=== PATIENT | male | born 1970 | race Caucasian/White ===

== ENCOUNTER → 2016-10-04 | Outpatient (CLI) | payer BC, OTHER ==
[~2016-10-04] MED LIST: ALLO100T PO; CEFP500T4 PO; COLC0.6T53 PO; HYDR-3720 PO; HYDR1TAB PO; LEVE500T6 PO; LISI-552 PO; NAPR-243 PO; ONDA4TAB8 PO; PRED10TA22 PO; TOPI50TA37 PO; TRM50T PO; VALA10004 PO; ZONI100C3 PO; [UNRECOGNIZED DRUG - OTHER]
--- NOTE | 2016-10-04 12:08 | Diagnostic Imaging Report ---
Right knee. INDICATION: Knee pain. AP and lateral views were obtained. There is no fracture, dislocation, or acute bony abnormality evident. The previous exam of 12/10/2009, did note mild narrowing of the medial compartment of the knee joint. On this exam, there is at least moderate narrowing of the medial compartment of the knee joint. The lateral compartment and the patellofemoral space are fairly well maintained. The soft tissue edema along the anterior aspect of the knee joint seen previously is not as striking on this exam. IMPRESSION: 1. There is no evidence for an acute bony abnormality. 2. 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 3. The knee joint is otherwise fairly well maintained. Dictated by: Dictated on workstation # [id number]
== END ==
LOC: RAD 09:39
PROVIDERS: ATTEND Surgery
DX: Z02.71 Encounter for disability determination (principal)
CPT/HCPCS: 73560

== ENCOUNTER 2016-10-09 09:52 | Emergency (ER) | payer BC ==
[~2016-10-09] VITALS: Ht 182.9 cm; Wt 127.0 kg
[~2016-10-09 09:52] MED LIST changes: -ALLO100T PO; -CEFP500T4 PO; -ONDA4TAB8 PO; -TOPI50TA37 PO; -ZONI100C3 PO
[2016-10-09 10:43] LABS: BASOPHILS # (AUTO) 0.1 10^3/uL (0.0-0.1); BASOPHILS % (AUTO) 1 % (0-10); EOSINOPHILS # (AUTO) 0.1 10^3/uL (0.0-0.3); EOSINOPHILS % (AUTO) 1 % (0-10); LYMPHOCYTES # (AUTO) 1.5 X 10^3 (1.0-4.0); LYMPHOCYTES % (AUTO) 15 % (12-44); MEAN CORPUSCULAR HEMOGLOBIN 29 PG (25-34); MEAN CORPUSCULAR HGB CONC 35 G/DL (32-36); MEAN CORPUSCULAR VOLUME 83 FL (80-99); MEAN PLATELET VOLUME 8.8 FL (7.4-10.4); MONOCYTES # (AUTO) 0.7 X 10^3 (0.0-1.0); MONOCYTES % (AUTO) 7 % (0-12); NEUTROPHILS # (AUTO) 8.1 X 10^3 (1.8-7.8); NEUTROPHILS % (AUTO) 77 % (42-75); PLATELET COUNT 244 10^3/uL (130-400); RED BLOOD COUNT 4.97 10^6/uL (4.35-5.85); RED CELL DISTRIBUTION WIDTH 13.1 % (10.0-14.5); WHITE BLOOD COUNT 10.6 10^3/uL (4.3-11.0)
[2016-10-09 11:02] LABS: ALANINE AMINOTRANSFERASE 42 U/L (0-55); ALBUMIN 4.1 G/DL (3.2-4.5); ANION GAP 9 MMOL/L (5-14); ASPARTATE AMINO TRANSFERASE 29 U/L (5-34); BILIRUBIN,TOTAL 0.5 MG/DL (0.1-1.0); BLOOD UREA NITROGEN 15 MG/DL (7-18); BUN/CREATININE RATIO 17; CALCIUM 8.9 MG/DL (8.5-10.1); CARBON DIOXIDE 21 MMOL/L (21-32); CHLORIDE 106 MMOL/L (98-107); CREATININE SERUM 0.88 MG/DL (0.60-1.30); GFR ESTIMATED > 60; GLUCOSE 109 MG/DL (70-105); POTASSIUM 4.3 MMOL/L (3.6-5.0); SODIUM 136 MMOL/L (135-145); TOTAL PROTEIN 7.1 G/DL (6.4-8.2)
--- NOTE | 2016-10-09 11:21 | ED Neurological Problem ---
General Chief Complaint: Neurological Problems Stated Complaint: SEIZURE Nursing Triage Note: AMB TO ROOM REPORTS THAT HAS HX OF SEIZURE DISORDER. HAD SEIZURE APX 740 . WAS TO SEE NEURO DR ON OCT 06,BUT MISSED APPOINTMENT. LAST SEIZURE WAS IN JUN. REQUESTING PAIN MEDS FOR HEADACHE ON ADMIT. Nursing Sepsis Screen: No Definite Risk Source: patient, police, EMS Exam Limitations: no limitations History of Present Illness Time seen by provider: 11:16 Initial Comments The patient is a 46-year-old white male who presents by ambulance with a chief complaint of seizure. He reports that he had his first seizure in May of this year. His last previous seizure was in June. He was to have seen Dr. Lenin figueroa neurologist in [place] last week but did not have the money for the copayment. His describes that he got up out of the bed to urinate and stumbled his way to the bathroom. He apparently then urinated all over the floor and went back to bed and then had a grand mal seizure including chewing on his tongue and a postictal state. He reports that he has no real memory of these events. He takes Keppra 1000 mg 3 times daily. Timing/Duration: 1-3 hours Severity: moderate Associated Symptoms: confusion fatigue Allergies and Home Medications Allergies Coded Allergies: No Known Drug Allergies (Verified , 06/11/16) Home Medications Colchicine 0.6 Mg Tablet 0.6 MG PO DAILY (Reported) Levetiracetam 500 Mg Tablet #0 1,000 MG PO BID Prescribed by: JOSE SOL on 06/12/16 1454 Lisinopril 20 Mg Tablet 20 MG PO DAILY (Reported) Constitutional: see HPI Eyes: No Symptoms Reported Ears, Nose, Mouth, Throat: no symptoms reported Respiratory: no symptoms reported Cardiovascular: no symptoms reported Gastrointestinal: no symptoms reported Genitourinary: no symptoms reported Musculoskeletal: other Psychiatric/Neurological: Cognitive Dysfunction Headache Tonic Clonic Seizures Weakness Endocrine: No Symptoms Reported (.I and ) Intolerance to Cold Hematologic/Lymphatic: No Symptoms Reported Past Ewqkwcl-Dhfrsy-Gikczo Hx Patient Social History Alcohol Use: Denies Use Recreational Drug Use: Yes Smoking Status: Never a Smoker Recent Foreign Travel: No Contact w/Someone Who Travel: No Recent Infectious Disease Expo: No Recent Hopitalizations: No Physical Abuse Screen: No Sexual Abuse: No Immunizations Up To Date Tetanus Booster (TDap): Unknown Seasonal Allergies Seasonal Allergies: No Surgeries HX Surgeries: Yes (CARDIAC CATH 2007--NORMAL) Surgeries: Cardiac Respiratory Hx Respiratory Disorders: No Cardiovascular Hx Cardiac Disorders: Yes Cardiac Disorders: Hypertension Neurological Hx Neurological Disorders: Yes Neurological Disorders: Seizure Disorder Reproductive System Hx Reproductive Disorders: No Genitourinary Hx Genitourinary Disorders: No Gastrointestinal Hx Gastrointestinal Disorders: No Musculoskeletal Hx Musculoskeletal Disorders: Yes Musculoskeletal Disorders: Arthritis, Gout Endocrine Hx Endocrine Disorders: Yes (PT REPORTS POSSIBLE NEW ONSET OF DM (UNSURE)) Endocrine Disorders: Diabetes, Non-Insulin dep HEENT HX ENT Disorders: No Cancer Hx Cancer: No Psychosocial Hx Psychiatric Problems: No Integumentary HX Skin/Integumentary Disorder: No Blood Transfusions Hx Blood Disorders: No Family Medical History Family Medial History: Congenital disease SON Seizure disorder G8 BROTHER G8 SISTER SON Physical Exam Vital Signs Vital Sign - Last 12Hours 10/09/16 09:55 Temp 99.0 Pulse 79 Resp 18 B/P 148/91 Pulse Ox 95 Capillary Refill : Less Than 3 Seconds General Appearance: WD/WN other (a bit vague as a historian) HEENT: normal ENT inspection Neck: full range of motion Respiratory: chest non-tender lungs clear normal breath sounds no respiratory distress no accessory muscle use respiratory distress Cardiovascular: normal peripheral pulses regular rate, rhythm no edema no gallop no JVD no murmur Gastrointestinal: normal bowel sounds non tender soft no organomegaly no pulsatile mass Back: normal inspection no CVA tenderness no vertebral tenderness CVA tenderness (R) CVA tenderness (L) Extremities: normal range of motion non-tender normal inspection no pedal edema no calf tenderness normal capillary refill pelvis stable Neurologic/Psychiatric: dog raiser II-XII nml as tested no motor/sensory deficits alert normal mood/affect oriented x 3 abnormal cerebellar tests Crainal Nerves: normal hearing normal speech PERRL abnormal eye position Skin: normal color warm/dry Lymphatic: no adenopathy Progress/Results/Core Measures Results/Orders Lab Results Laboratory Tests Test 10/09/16 10:30 Range/Units Alanine Aminotransferase (ALT/SGPT) 42 0-55 U/L Albumin 4.1 3.2-4.5 G/DL Alkaline Phosphatase 74 40-136 U/L Anion Gap 9 5-14 MMOL/L Aspartate Amino Transf (AST/SGOT) 29 5-34 U/L BUN/Creatinine Ratio 17 Basophils # (Auto) 0.1 0.0-0.1 10^3/uL Basophils (%) (Auto) 1 0-10 % Blood Urea Nitrogen 15 7-18 MG/DL Calcium Level 8.9 8.5-10.1 MG/DL Carbon Dioxide Level 21 21-32 MMOL/L Chloride Level 106 98-107 MMOL/L Creatinine 0.88 0.60-1.30 MG/DL Eosinophils # (Auto) 0.1 0.0-0.3 10^3/uL Eosinophils (%) (Auto) 1 0-10 % Estimat Glomerular Filtration Rate > 60 Glucose Level 109 H 70-105 MG/DL Hematocrit 41 40-54 % Hemoglobin 14.3 13.3-17.7 G/DL Lymphocytes # (Auto) 1.5 1.0-4.0 X 10^3 Lymphocytes (%) (Auto) 15 12-44 % Mean Corpuscular Hemoglobin 29 25-34 PG Mean Corpuscular Hemoglobin Concent 35 32-36 G/DL Mean Corpuscular Volume 83 80-99 FL Mean Platelet Volume 8.8 7.4-10.4 FL Monocytes # (Auto) 0.7 0.0-1.0 X 10^3 Monocytes (%) (Auto) 7 0-12 % Neutrophils # (Auto) 8.1 H 1.8-7.8 X 10^3 Neutrophils (%) (Auto) 77 H 42-75 % Platelet Count 244 130-400 10^3/uL Potassium Level 4.3 3.6-5.0 MMOL/L Red Blood Count 4.97 4.35-5.85 10^6/uL Red Cell Distribution Width 13.1 10.0-14.5 % Sodium Level 136 135-145 MMOL/L Total Bilirubin 0.5 0.1-1.0 MG/DL Total Protein 7.1 6.4-8.2 G/DL White Blood Count 10.6 4.3-11.0 10^3/uL My Orders Orders-KINGSLEY PEREIRA MD Levetiracetam Level (Keppra) (10/09/16 10:24) Cbc With Automated Diff (10/09/16 10:25) Comprehensive Metabolic Panel (10/09/16 10:25) Vital Signs/I&O Vital Sign - Last 12Hours 10/09/16 09:55 Temp 99.0 Pulse 79 Resp 18 B/P 148/91 Pulse Ox 95 Blood Pressure Mean: 110 Departure Communication Progress Notes Discussion included possibility of further workup. By history these are suggestive of complex partial seizures. He is again informed that long requires that he not drive until he has not had a seizure for 6 months Impression Impression: Primary Impression: tonic-clonic seizure Disposition: HOME, SELF-CARE Condition: Stable/Unchanged Departure-Patient Inst. Decision time for Depature: 11:25 Referrals: RICARDO MELO DO (PCP) Primary Care Physician ZULAY BARROW (Family) Primary Care Physician Patient Instructions: Epilepsy in Adults Add. Discharge Instructions: All discharge instructions reviewed with patient and/or family. Voiced understanding. Take medications as's prescribed A seizure med blood test has been sent off and should be available early to mid next week. You can get this report from [facility]. Consider arranging a consultation in the [facility] seizure clinic. As discussed you're not allowed to drive by law until you have gone 6 months without a seizure KINGSLEY PEREIRA MD Oct 09, 2016 11:21
[2016-10-09 11:30] VITALS: BP 147/83
== END 2016-10-09 11:35 | disposition home or self-care (01) ==
LOC: EDUNIT# 09:52 → ER 09:53
DX: G40.909 Epilepsy, unspecified, not intractable, without status epilepticus (principal); I10 Essential (primary) hypertension; E11.9 Type 2 diabetes mellitus without complications; Z79.899 Other long term (current) drug therapy
CPT/HCPCS: 36415; 80053; 80177; 85025; 99283

== ENCOUNTER 2016-12-12 02:01 | Emergency (ER) | payer BC ==
[~2016-12-12] VITALS: Ht 182.9 cm; Wt 131.5 kg
[2016-12-12] MEDS ORDERED: TOPI50TA37 PO (02:06)
[2016-12-12] MEDS ORDERED: ZONI100C3 PO (02:06)
[2016-12-12] MEDS ORDERED: ALLO100T PO (02:06)
[2016-12-12] MEDS ORDERED: NS IV 1000 ML 1,000 ML IV ONE (02:24)
[2016-12-12 02:29] LABS: BASOPHILS % (AUTO) 0 % (0-10); EOSINOPHILS # (AUTO) 0.2 10^3/uL (0.0-0.3); EOSINOPHILS % (AUTO) 2 % (0-10); LYMPHOCYTES # (AUTO) 2.3 X 10^3 (1.0-4.0); LYMPHOCYTES % (AUTO) 24 % (12-44); MEAN CORPUSCULAR HEMOGLOBIN 28 PG (25-34); MEAN CORPUSCULAR HGB CONC 35 G/DL (32-36); MEAN CORPUSCULAR VOLUME 81 FL (80-99); MEAN PLATELET VOLUME 8.7 FL (7.4-10.4); MONOCYTES # (AUTO) 0.7 X 10^3 (0.0-1.0); MONOCYTES % (AUTO) 7 % (0-12); NEUTROPHILS # (AUTO) 6.5 X 10^3 (1.8-7.8); NEUTROPHILS % (AUTO) 67 % (42-75); PLATELET COUNT 271 10^3/uL (130-400); RED CELL DISTRIBUTION WIDTH 13.8 % (10.0-14.5); WHITE BLOOD COUNT 9.8 10^3/uL (4.3-11.0)
[2016-12-12 02:46] LABS: ALANINE AMINOTRANSFERASE 40 U/L (0-55); ALBUMIN 4.3 G/DL (3.2-4.5); ANION GAP 12 MMOL/L (5-14); ASPARTATE AMINO TRANSFERASE 29 U/L (5-34); BILIRUBIN,TOTAL 0.5 MG/DL (0.1-1.0); BLOOD UREA NITROGEN 19 MG/DL (7-18); BUN/CREATININE RATIO 14; CALCIUM 9.2 MG/DL (8.5-10.1); CARBON DIOXIDE 22 MMOL/L (21-32); CHLORIDE 103 MMOL/L (98-107); CREATININE SERUM 1.36 MG/DL (0.60-1.30); GFR ESTIMATED 57; GLUCOSE 147 MG/DL (70-105); MAGNESIUM 2.5 MG/DL (1.8-2.4); POTASSIUM 3.7 MMOL/L (3.6-5.0); SODIUM 137 MMOL/L (135-145); TOTAL PROTEIN 7.8 G/DL (6.4-8.2)
[2016-12-12 02:47] LABS: ALCOHOL < 10 MG/DL (<10)
[2016-12-12 03:36] LABS: BILIRUBIN,URINE NEGATIVE (NEGATIVE); KETONES,URINE NEGATIVE (NEGATIVE); LEUKOCYTE ESTERASE ,URINE NEGATIVE (NEGATIVE); NITRITE,URINE NEGATIVE (NEGATIVE); PH,URINE 5 (5-9); PROTEIN,URINE 1+ (NEGATIVE); UROBILINOGEN,URINE 1 MG/DL (NORMAL)
[2016-12-12 03:43] LABS: SQUAMOUS EPITHELIAL CELL,UR 0-2 /HPF
[2016-12-12 03:44] LABS: HYALINE CASTS, URINE RARE /LPF
--- NOTE | 2016-12-12 04:21 | ED Neurological Problem ---
General Chief Complaint: Neurological Problems Stated Complaint: SEIZURE Nursing Triage Note: SEIZURE. Nursing Sepsis Screen: No Definite Risk Source: patient Exam Limitations: no limitations History of Present Illness Time seen by provider: 02:11 Initial Comments This 46-year-old man presents to the emergency room via EMS after falling out of bed during a seizure. He broke his glasses but denies any head or neck injury. His neck is nontender. He has abrasions to the right knee and elbow but no significant pain. He reports having 7 seizures since May. He is a patient of Dr. Phelps and Mariluz Salazar. He denies any alcohol consumption. However, he does admit to marijuana use within the past few days. Patient has some chronic knee pain related to gout but no acute injuries he wishes to have evaluated. Allergies and Home Medications Allergies Coded Allergies: No Known Drug Allergies (Verified , 06/11/16) Home Medications Allopurinol 100 Mg Tablet, 100 MG PO DAILY, (Reported) Levetiracetam 500 Mg Tablet, 1,000 MG PO BID, #0 Prescribed by: JOSE SOL on 06/12/16 1454 Lisinopril 20 Mg Tablet, 20 MG PO DAILY, (Reported) Topiramate 50 Mg Tablet, 50 MG PO BID, (Reported) Zonisamide 100 Mg Capsule, 400 MG PO HS, (Reported) Constitutional: no symptoms reported Eyes: No Symptoms Reported Ears, Nose, Mouth, Throat: mouth pain (Tongue contusion from biting during seizure) Respiratory: no symptoms reported Cardiovascular: no symptoms reported Gastrointestinal: no symptoms reported Genitourinary: no symptoms reported Musculoskeletal: see HPI Skin: see HPI Psychiatric/Neurological: See HPI Endocrine: No Symptoms Reported Past Qhndqlu-Zfclzm-Fwtrjd Hx Patient Social History Alcohol Use: Denies Use Recreational Drug Use: Yes Drug of Choice: CANNIBUS Smoking Status: Current Someday Smoker Type Used: Cigarettes 2nd Hand Smoke Exposure: Yes Recent Foreign Travel: No Contact w/Someone Who Travel: No Recent Infectious Disease Expo: No Recent Hopitalizations: No Immunizations Up To Date Tetanus Booster (TDap): Unknown Seasonal Allergies Seasonal Allergies: No Surgeries HX Surgeries: Yes (CARDIAC CATH 2007--NORMAL, L KNEE) Surgeries: Cardiac, Orthopedic Respiratory Hx Respiratory Disorders: No Cardiovascular Hx Cardiac Disorders: Yes Cardiac Disorders: Hypertension Neurological Hx Neurological Disorders: Yes Neurological Disorders: Headaches /Migraines, Seizure Disorder Reproductive System Hx Reproductive Disorders: No Genitourinary Hx Genitourinary Disorders: No Gastrointestinal Hx Gastrointestinal Disorders: No Musculoskeletal Hx Musculoskeletal Disorders: Yes (Chronic knee pain) Musculoskeletal Disorders: Arthritis, Gout Endocrine Hx Endocrine Disorders: Yes (PT REPORTS POSSIBLE NEW ONSET OF DM (UNSURE)) Endocrine Disorders: Diabetes, Non-Insulin dep HEENT HX ENT Disorders: No Cancer Hx Cancer: No Psychosocial Hx Psychiatric Problems: No Integumentary HX Skin/Integumentary Disorder: No Blood Transfusions Hx Blood Disorders: No Family Medical History Family Medial History: Congenital disease SON Seizure disorder G8 BROTHER G8 SISTER SON Physical Exam Vital Signs Capillary Refill : Less Than 3 Seconds General Appearance: WD/WN, no apparent distress HEENT: PERRL/EOMI, normal ENT inspection, pharynx normal, other (Tongue contusion) Neck: non-tender, supple, normal inspection Respiratory: lungs clear, normal breath sounds, no respiratory distress, no accessory muscle use Cardiovascular: regular rate, rhythm, no edema, no murmur Gastrointestinal: normal bowel sounds, non tender, soft Extremities: other (Abrasions on right upper and lower extremity. Chronic right knee tenderness reported as unchanged) Neurologic/Psychiatric: contract paralegal II-XII nml as tested, no motor/sensory deficits, alert, normal mood/affect, oriented x 3 Crainal Nerves: normal hearing, normal speech, PERRL Motor/Sensory: no motor deficit, no sensory deficit Skin: normal color, warm/dry Progress/Results/Core Measures Results/Orders Lab Results Laboratory Tests Test 12/12/16 02:15 12/12/16 03:29 Range/Units White Blood Count 9.8 4.3-11.0 10^3/uL Red Blood Count 5.10 4.35-5.85 10^6/uL Hemoglobin 14.5 13.3-17.7 G/DL Hematocrit 41 40-54 % Mean Corpuscular Volume 81 80-99 FL Mean Corpuscular Hemoglobin 28 25-34 PG Mean Corpuscular Hemoglobin Concent 35 32-36 G/DL Red Cell Distribution Width 13.8 10.0-14.5 % Platelet Count 271 130-400 10^3/uL Mean Platelet Volume 8.7 7.4-10.4 FL Neutrophils (%) (Auto) 67 42-75 % Lymphocytes (%) (Auto) 24 12-44 % Monocytes (%) (Auto) 7 0-12 % Eosinophils (%) (Auto) 2 0-10 % Basophils (%) (Auto) 0 0-10 % Neutrophils # (Auto) 6.5 1.8-7.8 X 10^3 Lymphocytes # (Auto) 2.3 1.0-4.0 X 10^3 Monocytes # (Auto) 0.7 0.0-1.0 X 10^3 Eosinophils # (Auto) 0.2 0.0-0.3 10^3/uL Basophils # (Auto) 0.0 0.0-0.1 10^3/uL Sodium Level 137 135-145 MMOL/L Potassium Level 3.7 3.6-5.0 MMOL/L Chloride Level 103 98-107 MMOL/L Carbon Dioxide Level 22 21-32 MMOL/L Anion Gap 12 5-14 MMOL/L Blood Urea Nitrogen 19 H 7-18 MG/DL Creatinine 1.36 H 0.60-1.30 MG/DL Estimat Glomerular Filtration Rate 57 BUN/Creatinine Ratio 14 Glucose Level 147 H 70-105 MG/DL Calcium Level 9.2 8.5-10.1 MG/DL Magnesium Level 2.5 H 1.8-2.4 MG/DL Total Bilirubin 0.5 0.1-1.0 MG/DL Aspartate Amino Transf (AST/SGOT) 29 5-34 U/L Alanine Aminotransferase (ALT/SGPT) 40 0-55 U/L Alkaline Phosphatase 80 40-136 U/L Total Protein 7.8 6.4-8.2 G/DL Albumin 4.3 3.2-4.5 G/DL Serum Alcohol < 10 <10 MG/DL Urine Color YELLOW Urine Clarity CLEAR Urine pH 5 5-9 Urine Specific Sachse 1.025 H 1.016-1.022 Urine Protein 1+ H NEGATIVE Urine Glucose (UA) NEGATIVE NEGATIVE Urine Ketones NEGATIVE NEGATIVE Urine Nitrite NEGATIVE NEGATIVE Urine Bilirubin NEGATIVE NEGATIVE Urine Urobilinogen 1 NORMAL MG/DL Urine Leukocyte Esterase NEGATIVE NEGATIVE Urine RBC (Auto) NEGATIVE NEGATIVE Urine RBC NONE /HPF Urine WBC NONE /HPF Urine Squamous Epithelial Cells 0-2 /HPF Urine Crystals NONE /LPF Urine Bacteria TRACE /HPF Urine Casts PRESENT /LPF Urine Hyaline Casts RARE /LPF Urine Mucus NEGATIVE /LPF Urine Other FEW SPERM H /HPF Urine Culture Indicated NO Urine Opiates Screen NEGATIVE NEGATIVE Urine Oxycodone Screen NEGATIVE NEGATIVE Urine Methadone Screen NEGATIVE NEGATIVE Urine Propoxyphene Screen NEGATIVE NEGATIVE Urine Barbiturates Screen NEGATIVE NEGATIVE Ur Tricyclic Antidepressants Screen NEGATIVE NEGATIVE Urine Phencyclidine Screen NEGATIVE NEGATIVE Urine Amphetamines Screen NEGATIVE NEGATIVE Urine Methamphetamines Screen NEGATIVE NEGATIVE Urine Benzodiazepines Screen NEGATIVE NEGATIVE Urine Cocaine Screen NEGATIVE NEGATIVE Urine Cannabinoids Screen POSITIVE H NEGATIVE My Orders Orders - DARION TAYLOR MD Alcohol (12/12/16 02:24) Cbc With Automated Diff (12/12/16 02:24) Comprehensive Metabolic Panel (12/12/16 02:24) Drug Screen Stat (Urine) (12/12/16 02:24) Magnesium (12/12/16 02:24) Ua Culture If Indicated (12/12/16 02:24) Saline Lock/Iv-Start (12/12/16 02:24) Ns Iv 1000 Ml (Sodium Chloride 0.9%) (12/12/16 02:24) Medications Given in ED Vital Signs/I&O Blood Pressure Mean: 105 Progress Note : Progress Note Patient was given a liter of IV fluids and advised to discontinue marijuana use. He was instructed to follow-up with Dr. Phelps. Departure Impression Impression: Primary Impression: Seizure Additional Impression: Elbow abrasion Qualified Codes: S50.312A - Abrasion of left elbow, initial encounter Disposition: 01 HOME, SELF-CARE Condition: Improved Departure-Patient Inst. Decision time for Depature: 04:15 Referrals: RICARDO MELO DO (PCP/Family) Primary Care Physician Patient Instructions: Seizures, Adult (DC) Add. Discharge Instructions: Follow-up with Dr. Phelps this week. Please continue your antiseizure medications. Avoid use of psychoactive substances such as marijuana as they may potentiate seizures. All discharge instructions reviewed with patient and/or family. Voiced understanding. DARION TAYLOR MD Dec 12, 2016 04:21
[2016-12-12 04:36] VITALS: BP 93/50
--- OUTSIDE RECORDS SUMMARY | 2017-01-04 11:38 | XMS REPORT ---
Author Author DYAN MENON [facility] e[employer] Address Unknown Phone Unavailable Care Team Providers Care Manager Developmental Name Role Phone DYAN MENON Unavailable Allergies, Adverse Reactions, Alerts Substance Reaction Event Type N.K.D.A. 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 Active Problem Other and unspecified bipolar disorders 296.89 Active Problem Nausea with vomiting 787.01 Active Problem Unspecified episodic mood disorder 296.90 Active Problem Diarrhea 787.91 Active Problem Fever, unspecified 780.60 Active Problem Torticollis, unspecified 723.5 Active Problem Essential hypertension, malignant 401.0 Active Problem Cough 786.2 Active Problem Cellulitis and abscess of unspecified site 682.9 Active Problem Sebaceous cyst 706.2 Active Problem Unspecified infective otitis externa 380.10 Active Problem Unspecified site of ankle sprain and strain 845.00 Active Problem Carpal tunnel syndrome 354.0 Active Problem Pain in joint, ankle and foot 719.47 Active Medications Medication Code System Code Instructions Start Date End Date Status Dosage Valtrex [facility] [address]-01 1 GM Orally 3 times a day Aug 13, 2015 1 tablet Lisinopril [facility] [address]-13 10 MG Orally Once a day January 20, 2015 1 tablet Procedures Procedure Coding System Code Date Office Visit, Est Pt., Level 3 CPT-4 68799 Sep 01, 2015 Vital Signs Date/Time: Sep 01, 2015 Temperature 97.9 F Weight 285.0 lbs Height 72 in BMI 38.65 Index Blood Pressure Diastolic 88 mmHg Blood Pressure Systolic 132 mmHg Cardiac Monitoring Heart Rate 78 bpm Results No Known Results Summary Purpose eClinicalWorks Submission
--- OUTSIDE RECORDS SUMMARY | 2017-01-04 11:38 | XMS REPORT | Continuity of Care Document ---
Author Author [facility] Address Unknown Phone Unavailable Allergies Active Description Code Type Severity Reaction Onset Reported/Identified Relationship to Patient Clinical Status Yes No Known Drug Allergies [id number] Drug Allergy Unknown N/ A 06/11/2016 Medications Problems Date Dx Coded Attending Type Code Diagnosis Diagnosed By 06/05/2008 RICARDO MELO DO K 845.00 Sprain/strain Ankle 06/05/2008 845.00 Sprain/strain Ankle 06/05/2008 845.00 Sprain/strain Ankle 06/05/2008 VASU PHD, JEAN A 845.00 Sprain/strain Ankle 06/05/2008 RICARDO MELO DO K 845.00 Sprain/strain Ankle 06/05/2008 VASU PHD, JEAN A 845.00 Sprain/strain Ankle 06/05/2008 VASU PHD, JEAN A 845.00 Sprain/strain Ankle 06/05/2008 TAWNY BRAUN, ANNA Lombardo 845.00 Sprain/strain Ankle 06/05/2008 VASU PHD, JEAN A 845.00 Sprain/strain Ankle 06/05/2008 VASU PHD, JEAN A 845.00 Sprain/strain Ankle 06/05/2008 VASU PHD, JEAN A 845.00 Sprain/strain Ankle 06/05/2008 VASU PHD, JEAN A 845.00 Sprain/strain Ankle 06/05/2008 VASU PHD, JEAN A 845.00 Sprain/strain Ankle 06/05/2008 SKIP MCKNIGHT APRN A 845.00 Sprain/strain Ankle 06/05/2008 RICARDO MELO DO K 845.00 Sprain/strain Ankle 06/05/2008 RICARDO MELO DO K 845.00 Sprain/strain Ankle 06/05/2008 VASU PHD, JEAN A 845.00 Sprain/strain Ankle 06/05/2008 TAWNY BRAUN, ANNA Lombardo 845.00 Sprain/strain Ankle 06/05/2008 ANDREI EVANS MD 845.00 Sprain/strain Ankle 06/05/2008 MELO DORICARDO K 845.00 Sprain/strain Ankle 06/05/2008 JUAN ALCANTARA APRN 845.00 Sprain/strain Ankle 08/10/2011 MELO DO, RICARDO K 274.9 GOUT 08/10/2011 MELO DO, RICARDO K 401.1 ESSENTIAL HYPERTENSION BENIGN 08/10/2011 274.9 GOUT 08/10/2011 401.1 ESSENTIAL HYPERTENSION BENIGN 08/10/2011 274.9 GOUT 08/10/2011 401.1 ESSENTIAL HYPERTENSION BENIGN 08/10/2011 JEAN LEONE PHD A 274.9 GOUT 08/10/2011 JEAN LEONE PHD A 401.1 ESSENTIAL HYPERTENSION BENIGN 08/10/2011 MELO DO, RICARDO K 274.9 GOUT 08/10/2011 MELO DO RICARDO K 401.1 ESSENTIAL HYPERTENSION BENIGN 08/10/2011 JEAN LEONE PHD A 274.9 GOUT 08/10/2011 JEAN LEONE PHD A 401.1 ESSENTIAL HYPERTENSION BENIGN 08/10/2011 VASU KUMAR, JEAN A 274.9 GOUT 08/10/2011 JEAN LEONE PHD A 401.1 ESSENTIAL HYPERTENSION BENIGN 08/10/2011 ANNA HECTOR MD N 274.9 GOUT 08/10/2011 ANNA HECTOR MD 401.1 ESSENTIAL HYPERTENSION BENIGN 08/10/2011 VASU KUMAR, JEAN A 274.9 GOUT 08/10/2011 JEAN LEONE PHD A 401.1 ESSENTIAL HYPERTENSION BENIGN 08/10/2011 VASU KUMAR JEAN A 274.9 GOUT 08/10/2011 VASU KUMAR JEAN A 401.1 ESSENTIAL HYPERTENSION BENIGN 08/10/2011 VASU KUMAR, JEAN A 274.9 GOUT 08/10/2011 VASU KUMAR JEAN A 401.1 ESSENTIAL HYPERTENSION BENIGN 08/10/2011 VASU KUMAR JEAN A 274.9 GOUT 08/10/2011 VASU KUMAR JEAN A 401.1 ESSENTIAL HYPERTENSION BENIGN 08/10/2011 VASU KUMAR JEAN A 274.9 GOUT 08/10/2011 VASU KUMAR JEAN A 401.1 ESSENTIAL HYPERTENSION BENIGN 08/10/2011 ROXANNA TESFAYE, SKIP A 274.9 GOUT 08/10/2011 RAJOTTE SELF PAY COLLECTOR, SKIP A 401.1 ESSENTIAL HYPERTENSION BENIGN 08/10/2011 MELO DO, RICARDO K 274.9 GOUT 08/10/2011 MELO DO, RICARDO K 401.1 ESSENTIAL HYPERTENSION BENIGN 08/10/2011 MELO DO, RICARDO K 274.9 GOUT 08/10/2011 MELO DO, RICARDO K 401.1 ESSENTIAL HYPERTENSION BENIGN 08/10/2011 VASU KUMAR, JEAN A 274.9 GOUT 08/10/2011 VASU KUMAR, JEAN Caballero 401.1 ESSENTIAL HYPERTENSION BENIGN 08/10/2011 TAWNY BRAUN, ANNA Lombardo 274.9 GOUT 08/10/2011 TAWNY BRAUN, ANNA Lombardo 401.1 ESSENTIAL HYPERTENSION BENIGN 08/10/2011 ANDREI EVANS MD 274.9 GOUT 08/10/2011 ANDREI EVANS MD 401.1 ESSENTIAL HYPERTENSION BENIGN 08/10/2011 MELO DO, RICARDO K 274.9 GOUT 08/10/2011 MELO DO, RICARDO K 401.1 ESSENTIAL HYPERTENSION BENIGN 08/10/2011 JUAN ALCANTARA APRN T 274.9 GOUT 08/10/2011 JUAN ALCANTARA APRN 401.1 ESSENTIAL HYPERTENSION BENIGN 08/18/2011 MELO DO, RICARDO K 296.80 BIPOLAR DISORDER NOS 08/18/2011 296.80 BIPOLAR DISORDER NOS 08/18/2011 296.80 BIPOLAR DISORDER NOS 08/18/2011 JEAN LEONE PHD 296.80 BIPOLAR DISORDER NOS 08/18/2011 MELO DO, RICARDO K 296.80 BIPOLAR DISORDER NOS 08/18/2011 JEAN LEONE PHD A 296.80 BIPOLAR DISORDER NOS 08/18/2011 JEAN LEONE PHD A 296.80 BIPOLAR DISORDER NOS 08/18/2011 ANNA HECTOR MD 296.80 BIPOLAR DISORDER NOS 08/18/2011 JEAN LEONE PHD 296.80 BIPOLAR DISORDER NOS 08/18/2011 JEAN LEONE PHD 296.80 BIPOLAR DISORDER NOS 08/18/2011 JEAN LEONE PHD 296.80 BIPOLAR DISORDER NOS 08/18/2011 JEAN LEONE PHD A 296.80 BIPOLAR DISORDER NOS 08/18/2011 JEAN LEONE PHD 296.80 BIPOLAR DISORDER NOS 08/18/2011 SKIP MCKNIGHT APRN A 296.80 BIPOLAR DISORDER NOS 08/18/2011 MELO DO, RICARDO K 296.80 BIPOLAR DISORDER NOS 08/18/2011 MELO DO, RICARDO K 296.80 BIPOLAR DISORDER NOS 08/18/2011 VASU KUMAR, JEAN A 296.80 BIPOLAR DISORDER NOS 08/18/2011 TAWNY BRAUN, ANNA Lombardo 296.80 BIPOLAR DISORDER NOS 08/18/2011 ANDREI EVANS MD 296.80 BIPOLAR DISORDER NOS 08/18/2011 MELO DO, RICARDO K 296.80 BIPOLAR DISORDER NOS 08/18/2011 JUAN ALCANTARA APRN 296.80 BIPOLAR DISORDER NOS 09/17/2011 MELO DO, RICARDO K 296.89 MO BIPOLAR II 09/17/2011 296.89 MO BIPOLAR II 09/17/2011 296.89 MO BIPOLAR II 09/17/2011 VASU KUMAR, JEAN A 296.89 MO BIPOLAR II 09/17/2011 KAMERON DOJUANA K 296.89 MO BIPOLAR II 09/17/2011 VASU KUMAR, JEAN A 296.89 MO BIPOLAR II 09/17/2011 VASU KUMAR, JEAN A 296.89 MO BIPOLAR II 09/17/2011 ANNA HECTOR MD 296.89 MO BIPOLAR II 09/17/2011 VASU PHD, JEAN A 296.89 MO BIPOLAR II 09/17/2011 VASU PHD, JEAN A 296.89 MO BIPOLAR II 09/17/2011 VASU KUMAR, JEAN A 296.89 MO BIPOLAR II 09/17/2011 VASU KUMAR, JEAN A 296.89 MO BIPOLAR II 09/17/2011 VASU KUMAR, JEAN A 296.89 MO BIPOLAR II 09/17/2011 SKIP MCKNIGHT APRN A 296.89 MO BIPOLAR II 09/17/2011 MELO DO, RICARDO K 296.89 MO BIPOLAR II 09/17/2011 MELO DO RICARDO K 296.89 MO BIPOLAR II 09/17/2011 VASU KUMAR, JEAN A 296.89 MO BIPOLAR II 09/17/2011 ANNA HECTOR MD 296.89 MO BIPOLAR II 09/17/2011 ANDREI EVANS MD 296.89 MO BIPOLAR II 09/17/2011 MELO DO RICARDO K 296.89 MO BIPOLAR II 09/17/2011 JUAN ALCANTARA APRN 296.89 MO BIPOLAR II 01/24/2012 RICARDO MELO DO K 682.9 CELLULITIS AND ABSCESS OF UNSPECIFIED SITES 01/24/2012 RICARDO MELO DO K 706.2 SEBACEOUS CYST 01/24/2012 682.9 CELLULITIS AND ABSCESS OF UNSPECIFIED SITES 01/24/2012 706.2 SEBACEOUS CYST 01/24/2012 682.9 CELLULITIS AND ABSCESS OF UNSPECIFIED SITES 01/24/2012 706.2 SEBACEOUS CYST 01/24/2012 VASU KUMAR, JEAN A 682.9 CELLULITIS AND ABSCESS OF UNSPECIFIED SITES 01/24/2012 VASU KUMAR, JEAN A 706.2 SEBACEOUS CYST 01/24/2012 RICARDO MELO DO 682.9 CELLULITIS AND ABSCESS OF UNSPECIFIED SITES 01/24/2012 RICARDO MELO DO 706.2 SEBACEOUS CYST 01/24/2012 JEAN LEONE PHD A 682.9 CELLULITIS AND ABSCESS OF UNSPECIFIED SITES 01/24/2012 JEAN LEONE PHD A 706.2 SEBACEOUS CYST 01/24/2012 VASU PHD, JEAN A 682.9 CELLULITIS AND ABSCESS OF UNSPECIFIED SITES 01/24/2012 JEAN LEONE PHD A 706.2 SEBACEOUS CYST 01/24/2012 ANNA HECTOR MD 682.9 CELLULITIS AND ABSCESS OF UNSPECIFIED SITES 01/24/2012 ANNA HECTOR MD 706.2 SEBACEOUS CYST 01/24/2012 JEAN LEONE PHD A 682.9 CELLULITIS AND ABSCESS OF UNSPECIFIED SITES 01/24/2012 JEAN LEONE PHD A 706.2 SEBACEOUS CYST 01/24/2012 VASU KUMAR, JEAN A 682.9 CELLULITIS AND ABSCESS OF UNSPECIFIED SITES 01/24/2012 JEAN LEONE PHD A 706.2 SEBACEOUS CYST 01/24/2012 JEAN LEONE PHD A 682.9 CELLULITIS AND ABSCESS OF UNSPECIFIED SITES 01/24/2012 JEAN LEONE PHD A 706.2 SEBACEOUS CYST 01/24/2012 JEAN LEONE PHD A 682.9 CELLULITIS AND ABSCESS OF UNSPECIFIED SITES 01/24/2012 VASU KUMAR, JEAN A 706.2 SEBACEOUS CYST 01/24/2012 VASU KUMAR, JEAN A 682.9 CELLULITIS AND ABSCESS OF UNSPECIFIED SITES 01/24/2012 VASU KUMAR, JEAN A 706.2 SEBACEOUS CYST 01/24/2012 SKIP MCKNIGHT APRN A 682.9 CELLULITIS AND ABSCESS OF UNSPECIFIED SITES 01/24/2012 SKIP MCKNIGHT APRN A 706.2 SEBACEOUS CYST 01/24/2012 MELO DO RICARDO K 682.9 CELLULITIS AND ABSCESS OF UNSPECIFIED SITES 01/24/2012 MELO DO RICARDO K 706.2 SEBACEOUS CYST 01/24/2012 MELO DO RICARDO K 682.9 CELLULITIS AND ABSCESS OF UNSPECIFIED SITES 01/24/2012 MELO DO RICARDO K 706.2 SEBACEOUS CYST 01/24/2012 VASU KUMAR, JEAN A 682.9 CELLULITIS AND ABSCESS OF UNSPECIFIED SITES 01/24/2012 VASU KUMAR, JEAN A 706.2 SEBACEOUS CYST 01/24/2012 ANNA HECTOR MD 682.9 CELLULITIS AND ABSCESS OF UNSPECIFIED SITES 01/24/2012 ANNA HECTOR MD 706.2 SEBACEOUS CYST 01/24/2012 ANDREI EVANS MD 682.9 CELLULITIS AND ABSCESS OF UNSPECIFIED SITES 01/24/2012 ANDREI EVANS MD 706.2 SEBACEOUS CYST 01/24/2012 JUAN MELO DOA K 682.9 CELLULITIS AND ABSCESS OF UNSPECIFIED SITES 01/24/2012 JUAN MELO DOA K 706.2 SEBACEOUS CYST 01/24/2012 JUAN ALCANTARA APRN 682.9 CELLULITIS AND ABSCESS OF UNSPECIFIED SITES 01/24/2012 JUAN ALCANTARA APRN 706.2 SEBACEOUS CYST 07/18/2012 RICARDO MELO DO 008.8 GASTROENTERITIS, VIRAL 07/18/2012 JUAN MELO DOA K 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 07/18/2012 JUAN MELO DOA K 784.91 POSTNASAL DRIP 07/18/2012 JUAN MELO DOA K 787.01 NAUSEA WITH VOMITING 07/18/2012 008.8 GASTROENTERITIS, VIRAL 07/18/2012 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 07/18/2012 784.91 POSTNASAL DRIP 07/18/2012 787.01 NAUSEA WITH VOMITING 07/18/2012 008.8 GASTROENTERITIS, VIRAL 07/18/2012 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 07/18/2012 784.91 POSTNASAL DRIP 07/18/2012 787.01 NAUSEA WITH VOMITING 07/18/2012 JEAN LEONE PHD 008.8 GASTROENTERITIS, VIRAL 07/18/2012 JEAN LEONE PHD 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 07/18/2012 VASU KUMAR, JEAN Caballero 784.91 POSTNASAL DRIP 07/18/2012 JEAN LEONE PHD 787.01 NAUSEA WITH VOMITING 07/18/2012 MELO DO RICARDO K 008.8 GASTROENTERITIS, VIRAL 07/18/2012 MELO DO RICARDO K 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 07/18/2012 MELO DO RICARDO K 784.91 POSTNASAL DRIP 07/18/2012 MELO DO RICARDO K 787.01 NAUSEA WITH VOMITING 07/18/2012 JEAN LEONE PHD 008.8 GASTROENTERITIS, VIRAL 07/18/2012 VASU KUMAR, JEAN Caballero 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 07/18/2012 JEAN LEONE PHD A 784.91 POSTNASAL DRIP 07/18/2012 JEAN LEONE PHD A 787.01 NAUSEA WITH VOMITING 07/18/2012 JEAN LEONE PHD 008.8 GASTROENTERITIS, VIRAL 07/18/2012 JEAN LEONE PHD 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 07/18/2012 VASU KUMAR, JEAN A 784.91 POSTNASAL DRIP 07/18/2012 VASU KUMAR, JEAN A 787.01 NAUSEA WITH VOMITING 07/18/2012 ANNA HECTOR MD 008.8 GASTROENTERITIS, VIRAL 07/18/2012 ANNA HECTOR MD 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 07/18/2012 ANNA HECTOR MD 784.91 POSTNASAL DRIP 07/18/2012 ANNA HECTOR MD 787.01 NAUSEA WITH VOMITING 07/18/2012 BOEKHOUT PHD, JEAN A 008.8 GASTROENTERITIS, VIRAL 07/18/2012 [facility] PHD, JEAN A 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 07/18/2012 [facility] PHD, JEAN A 784.91 POSTNASAL DRIP 07/18/2012 [facility] PHD, JEAN A 787.01 NAUSEA WITH VOMITING 07/18/2012 [facility] PHD, JEAN A 008.8 GASTROENTERITIS, VIRAL 07/18/2012 [facility] PHD, JEAN A 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 07/18/2012 [facility] PHD, JEAN A 784.91 POSTNASAL DRIP 07/18/2012 [facility] PHD, JEAN A 787.01 NAUSEA WITH VOMITING 07/18/2012 [facility] PHD, JEAN A 008.8 GASTROENTERITIS, VIRAL 07/18/2012 [facility] PHD, JEAN A 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 07/18/2012 [facility], JEAN A 784.91 POSTNASAL DRIP 07/18/2012 [facility] PHD, JEAN A 787.01 NAUSEA WITH VOMITING 07/18/2012 [facility] PHD, JEAN A 008.8 GASTROENTERITIS, VIRAL 07/18/2012 [facility] PHD, JEAN A 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 07/18/2012 [facility], JEAN A 784.91 POSTNASAL DRIP 07/18/2012 [facility] PHD, JEAN A 787.01 NAUSEA WITH VOMITING 07/18/2012 [facility] PH[facility], JEAN A 008.8 GASTROENTERITIS, VIRAL 07/18/2012 [facility] PHD, JEAN A 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 07/18/2012 [facility] PHD, JEAN A 784.91 POSTNASAL DRIP 07/18/2012 [facility] PHD, JEAN A 787.01 NAUSEA WITH VOMITING 07/18/2012 RAJOTTE SELF PAY COLLECTOR, SKIP A 008.8 GASTROENTERITIS, VIRAL 07/18/2012 RAJLANAE SELF PAY COLLECTOR, SKIP A 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 07/18/2012 RAJOTTE SELF PAY COLLECTOR, SKIP A 784.91 POSTNASAL DRIP 07/18/2012 RAJOTTE SELF PAY COLLECTOR, SKIP A 787.01 NAUSEA WITH VOMITING 07/18/2012 MELO DO, RICARDO K 008.8 GASTROENTERITIS, VIRAL 07/18/2012 MELO DORICARDO 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 07/18/2012 MELO DO RICARDO K 784.91 POSTNASAL DRIP 07/18/2012 MELO DO, RICARDO K 787.01 NAUSEA WITH VOMITING 07/18/2012 MELO DO, RICARDO K 008.8 GASTROENTERITIS, VIRAL 07/18/2012 MELO DO RICARDO K 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 07/18/2012 MELO DO, RICARDO K 784.91 POSTNASAL DRIP 07/18/2012 MELO DO, RICARDO K 787.01 NAUSEA WITH VOMITING 07/18/2012 VASU PHD, JEAN Ortega.8 GASTROENTERITIS, VIRAL 07/18/2012 VASU PHD, JEAN Caballero 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 07/18/2012 JEAN LEONE PHD4.91 POSTNASAL DRIP 07/18/2012 VASU PHD, JEAN Caballero 787.01 NAUSEA WITH VOMITING 07/18/2012 ANNA HECTOR MD 008.8 GASTROENTERITIS, VIRAL 07/18/2012 ANNA HECTOR MD 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 07/18/2012 ANNA HECTOR MD.91 POSTNASAL DRIP 07/18/2012 ANNA HECTOR MD 787.01 NAUSEA WITH VOMITING 07/18/2012 ANDREI EVANS MD.8 GASTROENTERITIS, VIRAL 07/18/2012 ANDREI EVANS MD8.19 OTHER DISEASES OF NASAL CAVITY AND SINUSES 07/18/2012 ANDREI EVASN MD.91 POSTNASAL DRIP 07/18/2012 ANDREI EVANS MD7.01 NAUSEA WITH VOMITING 07/18/2012 MELO DO RICARDO Petey 008.8 GASTROENTERITIS, VIRAL 07/18/2012 RICARDO MELO DO 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 07/18/2012 MELO DO RICARDO K 784.91 POSTNASAL DRIP 07/18/2012 MELO DOJUANA K 787.01 NAUSEA WITH VOMITING 07/18/2012 JUAN ALCANTARA APRN 008.8 GASTROENTERITIS, VIRAL 07/18/2012 QUINTON SELF PAY COLLECTOR, JUAN T 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 07/18/2012 QUINTON JUAN TESFAYE T 784.91 POSTNASAL DRIP 07/18/2012 JUAN ALCANTARA APRN T 787.01 NAUSEA WITH VOMITING 01/09/2013 719.46 PAIN IN JOINT INVOLVING LOWER LEG 01/09/2013 729.5 PAIN IN LIMB 01/09/2013 719.46 PAIN IN JOINT INVOLVING LOWER LEG 01/09/2013 729.5 PAIN IN LIMB 01/09/2013 JEAN LEONE PHD 719.46 PAIN IN JOINT INVOLVING LOWER LEG 01/09/2013 JEAN LEONE PHD 729.5 PAIN IN LIMB 01/09/2013 RICARDO MELO DO 719.46 PAIN IN JOINT INVOLVING LOWER LEG 01/09/2013 RICARDO MELO DO 729.5 PAIN IN LIMB 01/09/2013 JEAN LEONE PHD 719.46 PAIN IN JOINT INVOLVING LOWER LEG 01/09/2013 JEAN LEONE PHD 729.5 PAIN IN LIMB 01/09/2013 JEAN LEONE PHD 719.46 PAIN IN JOINT INVOLVING LOWER LEG 01/09/2013 JEAN LEONE PHD 729.5 PAIN IN LIMB 01/09/2013 ANNA HECTOR MD N 719.46 PAIN IN JOINT INVOLVING LOWER LEG 01/09/2013 ANNA HECTOR MD N 729.5 PAIN IN LIMB 01/09/2013 JEAN LEONE PHD 719.46 PAIN IN JOINT INVOLVING LOWER LEG 01/09/2013 JEAN LEONE PHD 729.5 PAIN IN LIMB 01/09/2013 JEAN LEONE PHD 719.46 joint pain in the right knee 01/09/2013 JEAN LEONE PHD 729.5 PAIN IN LIMB 01/09/2013 JEAN LEONE PHD 719.46 joint pain in the right knee 01/09/2013 JEAN LEONE PHD 729.5 PAIN IN LIMB 01/09/2013 JEAN LEONE PHD 719.46 joint pain in the right knee 01/09/2013 JEAN LEONE PHD 729.5 PAIN IN LIMB 01/09/2013 JEAN LEONE PHD 719.46 joint pain in the right knee 01/09/2013 JEAN LEONE PHD 729.5 PAIN IN LIMB 01/09/2013 SKIP MCKNIGHT APRN A 719.46 joint pain in the right knee 01/09/2013 SKIP MCKNIGHT APRN A 729.5 PAIN IN LIMB 01/09/2013 MELO DO, RICARDO K 719.46 JOINT PAIN IN THE RIGHT KNEE 01/09/2013 MELO DO, RICARDO K 729.5 PAIN IN LIMB 01/09/2013 MELO DO, RICARDO K 719.46 JOINT PAIN IN THE RIGHT KNEE 01/09/2013 MELO DO, RICARDO K 729.5 PAIN IN LIMB 01/09/2013 JEAN LEONE PHD 719.46 JOINT PAIN IN THE RIGHT KNEE 01/09/2013 JEAN LEONE PHD 729.5 PAIN IN LIMB 01/09/2013 ANNA HECTOR MD 719.46 JOINT PAIN IN THE RIGHT KNEE 01/09/2013 ANNA HECTOR MD 729.5 PAIN IN LIMB 01/09/2013 ANDREI EVANS MD 719.46 JOINT PAIN IN THE RIGHT KNEE 01/09/2013 ANDREI EVANS MD 729.5 PAIN IN LIMB 01/09/2013 MELO DO, RICARDO K 719.46 JOINT PAIN IN THE RIGHT KNEE 01/09/2013 MELO DO, RICARDO K 729.5 PAIN IN LIMB 01/09/2013 JUAN ALCANTARA APRN 719.46 JOINT PAIN IN THE RIGHT KNEE 01/09/2013 JUAN ALCANTARA APRN 729.5 PAIN IN LIMB 04/03/2013 723.5 TORTICOLLIS UNSPECIFIED 04/03/2013 JEAN LEONE PHD 723.5 TORTICOLLIS UNSPECIFIED 04/03/2013 JUAN MELO DOA K 723.5 TORTICOLLIS UNSPECIFIED 04/03/2013 JEAN LEONE PHD 723.5 TORTICOLLIS UNSPECIFIED 04/03/2013 JEAN LEONE PHD 723.5 TORTICOLLIS UNSPECIFIED 04/03/2013 ANNA HECTOR MD 723.5 TORTICOLLIS UNSPECIFIED 04/03/2013 JEAN LEONE PHD 723.5 TORTICOLLIS UNSPECIFIED 04/03/2013 VASU KUMAR, JEAN A 723.5 TORTICOLLIS UNSPECIFIED 04/03/2013 VASU KUMAR, JEAN A 723.5 TORTICOLLIS UNSPECIFIED 04/03/2013 VASU PHD, JEAN A 723.5 TORTICOLLIS UNSPECIFIED 04/03/2013 VASU KUMAR, JEAN A 723.5 TORTICOLLIS UNSPECIFIED 04/03/2013 SKIP MCKNIGHT APRN A 723.5 TORTICOLLIS UNSPECIFIED 04/03/2013 MELO , RICARDO K 723.5 TORTICOLLIS UNSPECIFIED 04/03/2013 MELO DO, RICARDO K 723.5 TORTICOLLIS UNSPECIFIED 04/03/2013 VASU PHD, JEAN A 723.5 TORTICOLLIS UNSPECIFIED 04/03/2013 ANNA HECTOR MD 723.5 TORTICOLLIS UNSPECIFIED 04/03/2013 ANDREI EVANS MD 723.5 TORTICOLLIS UNSPECIFIED 04/03/2013 MELO DO, RICARDO K 723.5 TORTICOLLIS UNSPECIFIED 04/03/2013 JUAN ALCANTARA APRN 723.5 TORTICOLLIS UNSPECIFIED 05/17/2013 296.90 MOOD DISORDER NOS 05/17/2013 VASU KUMAR, JEAN A 296.90 MOOD DISORDER NOS 05/17/2013 RICARDO MELO DO 296.90 MOOD DISORDER NOS 05/17/2013 VASU KUMAR, JEAN A 296.90 MOOD DISORDER NOS 05/17/2013 VASU KUMAR, JEAN A 296.90 MOOD DISORDER NOS 05/17/2013 ANNA HECTOR MD 296.90 MOOD DISORDER NOS 05/17/2013 VASU KUMAR, JEAN A 296.90 MOOD DISORDER NOS 05/17/2013 VASU KUMAR, JEAN A 296.90 MOOD DISORDER NOS 05/17/2013 VASU KUMAR, JEAN A 296.90 MOOD DISORDER NOS 05/17/2013 VASU KUMAR, JEAN A 296.90 MOOD DISORDER NOS 05/17/2013 VASU KUMAR, JEAN A 296.90 MOOD DISORDER NOS 05/17/2013 SKIP MCKNIGHT APRN 296.90 MOOD DISORDER NOS 05/17/2013 MELO DO, RICARDO K 296.90 MOOD DISORDER NOS 05/17/2013 MELO DO, RICARDO K 296.90 MOOD DISORDER NOS 05/17/2013 VASU PHD, JEAN A 296.90 MOOD DISORDER NOS 05/17/2013 ANNA HECTOR MD 296.90 MOOD DISORDER NOS 05/17/2013 ANDREI EVANS MD 296.90 MOOD DISORDER NOS 05/17/2013 MELO DO, RICARDO K 296.90 MOOD DISORDER NOS 05/17/2013 JUAN ALCANTARA APRN 296.90 MOOD DISORDER NOS 06/05/2013 MELO DO, RICARDO K 401.0 HYPERTENSION MALIGNANT ESSENTIAL 06/05/2013 MELO DO, RICARDO K 780.60 FEVER, UNSPECIFIED 06/05/2013 MELO DO, RICARDO K 786.2 COUGH 06/05/2013 VASU PHD, JEAN A 401.0 HYPERTENSION MALIGNANT ESSENTIAL 06/05/2013 BOEYAHAIRAOUT PHD, JEAN A 780.60 FEVER, UNSPECIFIED 06/05/2013 [facility] PHD, JEAN A 786.2 COUGH 06/05/2013 [place] PHD, JEAN A 401.0 HYPERTENSION MALIGNANT ESSENTIAL 06/05/2013 BOEYAHAIRAOUT PHD, JEAN A 780.60 FEVER, UNSPECIFIED 06/05/2013 [facility] PHD, JEAN A 786.2 COUGH 06/05/2013 TAWNY BRAUN, ANNA Lombardo 401.0 HYPERTENSION MALIGNANT ESSENTIAL 06/05/2013 ANNA HECTOR MD 780.60 FEVER, UNSPECIFIED 06/05/2013 ANNA HECTOR MD 786.2 COUGH 06/05/2013 BO[place]AT[place] KUMAR, JEAN A 401.0 HYPERTENSION MALIGNANT ESSENTIAL 06/05/2013 BOEYAHAIRAOUT PHD, JEAN A 780.60 FEVER, UNSPECIFIED 06/05/2013 BOEYAHAIRAOUT PHD, JEAN A 786.2 COUGH 06/05/2013 [facility] PHD, JEAN A 401.0 HYPERTENSION MALIGNANT ESSENTIAL 06/05/2013 [facility] PHD, JEAN A 780.60 FEVER, UNSPECIFIED 06/05/2013 [facility] PHD, JEAN A 786.2 COUGH 06/05/2013 [facility] PHD, JEAN A 401.0 HYPERTENSION MALIGNANT ESSENTIAL 06/05/2013 [facility] PHD, JEAN A 780.60 FEVER, UNSPECIFIED 06/05/2013 [facility] PHD, JEAN A 786.2 COUGH 06/05/2013 [place] PHD, JEAN A 401.0 HYPERTENSION MALIGNANT ESSENTIAL 06/05/2013 [facility] PHD, JEAN A 780.60 FEVER, UNSPECIFIED 06/05/2013 [facility] PHD, JEAN A 786.2 COUGH 06/05/2013 [facility] PHD, JEAN A 401.0 HYPERTENSION MALIGNANT ESSENTIAL 06/05/2013 [facility] PHD, JEAN A 780.60 FEVER, UNSPECIFIED 06/05/2013 [facility] PHD, JEAN A 786.2 COUGH 06/05/2013 ROXANNA SELF PAY COLLECTOR, SKIP A 401.0 HYPERTENSION MALIGNANT ESSENTIAL 06/05/2013 RAJOTTE SELF PAY COLLECTOR, SKIP A 780.60 FEVER, UNSPECIFIED 06/05/2013 RAJOTTE SELF PAY COLLECTOR, SKIP A 786.2 COUGH 06/05/2013 MELO DO, RICARDO K 401.0 HYPERTENSION MALIGNANT ESSENTIAL 06/05/2013 MELO DO, RICARDO K 780.60 FEVER, UNSPECIFIED 06/05/2013 MELO DO, RICARDO K 786.2 COUGH 06/05/2013 MELO DO, RICARDO K 401.0 HYPERTENSION MALIGNANT ESSENTIAL 06/05/2013 MELO DO, RICARDO K 780.60 FEVER, UNSPECIFIED 06/05/2013 MELO DO, RICARDO K 786.2 COUGH 06/05/2013 [facility] PHD, JEAN A 401.0 HYPERTENSION MALIGNANT ESSENTIAL 06/05/2013 [facility] PHD, JEAN A 780.60 FEVER, UNSPECIFIED 06/05/2013 [facility] PHD, JEAN A 786.2 COUGH 06/05/2013 TAWNY BRAUN, ANNA N 401.0 HYPERTENSION MALIGNANT ESSENTIAL 06/05/2013 TAWNY BRAUN, ANNA N 780.60 FEVER, UNSPECIFIED 06/05/2013 ANNA HECTOR MD N 786.2 COUGH 06/05/2013 ANDREI EVANS MD 401.0 HYPERTENSION MALIGNANT ESSENTIAL 06/05/2013 ANDREI EVANS MD 780.60 FEVER, UNSPECIFIED 06/05/2013 ANDREI EVANS MD 786.2 COUGH 06/05/2013 MELO DO, RICARDO K 401.0 HYPERTENSION MALIGNANT ESSENTIAL 06/05/2013 MELO DO, RICARDO K 780.60 FEVER, UNSPECIFIED 06/05/2013 MELO DO, RICARDO K 786.2 COUGH 06/05/2013 JUAN ALCANTARA APRN 401.0 HYPERTENSION MALIGNANT ESSENTIAL 06/05/2013 JUAN ALCANTARA APRN 780.60 FEVER, UNSPECIFIED 06/05/2013 JUAN ALCANTARA APRN 786.2 COUGH 03/20/2014 SKIP MCKNIGHT APRN 719.47 PAIN IN JOINT INVOLVING ANKLE AND FOOT 03/20/2014 SKIP MCKNIGHT APRN 845.00 SPRAIN/STRAIN ANKLE 03/20/2014 RICARDO MELO DO 719.47 PAIN IN JOINT INVOLVING ANKLE AND FOOT 03/20/2014 RICARDO MELO DO K 845.00 SPRAIN/STRAIN ANKLE 03/20/2014 RICARDO MELO DO K 719.47 PAIN IN JOINT INVOLVING ANKLE AND FOOT 03/20/2014 JUAN MELO DOA K 845.00 SPRAIN/STRAIN ANKLE 03/20/2014 JEAN LEONE PHD 719.47 PAIN IN JOINT INVOLVING ANKLE AND FOOT 03/20/2014 JEAN LEONE PHD 845.00 SPRAIN/STRAIN ANKLE 03/20/2014 ANNA HECTOR MD 719.47 PAIN IN JOINT INVOLVING ANKLE AND FOOT 03/20/2014 ANNA HECTOR MD 845.00 SPRAIN/STRAIN ANKLE 03/20/2014 ADNREI EVANS MD 719.47 PAIN IN JOINT INVOLVING ANKLE AND FOOT 03/20/2014 ANDREI EVANS MD 845.00 SPRAIN/STRAIN ANKLE 03/20/2014 RICARDO MELO DO 719.47 PAIN IN JOINT INVOLVING ANKLE AND FOOT 03/20/2014 RICARDO MELO DO 845.00 SPRAIN/STRAIN ANKLE 03/20/2014 JUAN ALCANTARA APRN 719.47 PAIN IN JOINT INVOLVING ANKLE AND FOOT 03/20/2014 JUAN ALCANTARA APRN 845.00 SPRAIN/STRAIN ANKLE 06/13/2014 ANNA HECTOR MD 528.09 OTHER STOMATITIS AND MUCOSITIS (ULCERATIVE ) 06/13/2014 ANDREI EVANS MD 528.09 OTHER STOMATITIS AND MUCOSITIS (ULCERATIVE) 06/13/2014 RICARDO MELO DO 528.09 OTHER STOMATITIS AND MUCOSITIS (ULCERATIVE) 06/13/2014 JUAN ALCANTARA APRN 528.09 OTHER STOMATITIS AND MUCOSITIS ( ULCERATIVE) 07/02/2014 ANDREI EVANS MD 380.10 INFECTIVE OTITIS EXTERNA UNSPECIFIED 07/02/2014 RICARDO MELO DO 380.10 INFECTIVE OTITIS EXTERNA UNSPECIFIED 07/02/2014 JUAN ALCANTARA APRN 380.10 INFECTIVE OTITIS EXTERNA UNSPECIFIED 09/30/2014 RICARDO MELO DO 354.0 CARPAL TUNNEL SYNDROME 09/30/2014 JUAN ALCANTARA APRN 354.0 CARPAL TUNNEL SYNDROME 10/18/2014 JUAN ALCANTARA APRN 787.91 DIARRHEA 12/30/2014 JUAN ALCATNARA APRN 008.8 GASTROENTERITIS, VIRAL 08/13/2015 FRED LUX DO Ot 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 05/25/2016 NATHAN BRAUN, ANDREI Hernandez Ot R56.9 UNSPECIFIED CONVULSIONS 05/26/2016 ANDREI EVANS MD, Ot R56.9 UNSPECIFIED CONVULSIONS 06/09/2016 ANDREI EVANS MD, Ot R56.9 UNSPECIFIED CONVULSIONS 06/12/2016 ANDREI EVANS MD Ot 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, 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9 UNSPECIFIED CONVULSIONS 10/09/2016 KINGSLEY PEREIRA MD Ot E11.9 TYPE 2 DIABETES MELLITUS WITHOUT COMPLIC 10/09/2016 KINGSLEY PEREIRA MD Ot G40.909 EPILEPSY, UNSP, NOT INTRACTABLE, WITHOUT 10/09/2016 KINGSLEY PEREIRA MD Ot I10 ESSENTIAL (PRIMARY) HYPERTENSION 10/09/2016 KINGSLEY PEREIRA MD Ot Z79.899 OTHER LEGAL AID (CURRENT) DRUG THERAPY 10/11/2016 KINGSLEY PEREIRA MD Ot E11.9 TYPE 2 DIABETES MELLITUS WITHOUT COMPLIC 10/11/2016 KINGSLEY PEREIRA MD Ot G40.909 EPILEPSY, UNSP, NOT INTRACTABLE, WITHOUT 10/11/2016 KINGSLEY PEREIRA MD Ot I10 ESSENTIAL (PRIMARY) HYPERTENSION 10/11/2016 KINGSLEY PEREIRA MD Ot Z79.899 OTHER CORRECTION (CURRENT) DRUG THERAPY 10/13/2016 KINGSLEY PEREIRA MD Ot E11.9 TYPE 2 DIABETES MELLITUS WITHOUT COMPLIC 10/13/2016 KINGSLEY PEREIRA MD Ot G40.909 EPILEPSY, UNSP, NOT INTRACTABLE, WITHOUT 10/13/2016 KINGSLEY PEREIRA MD Ot I10 ESSENTIAL (PRIMARY) HYPERTENSION 10/13/2016 KINGSLEY PEREIRA MD Ot Z79.899 OTHER LEGAL AID (CURRENT) DRUG THERAPY 11/05/2016 WILBER CALDWELL MD (DDU) Ot Z02.71 ENCOUNTER FOR DISABILITY DETERMINATION 11/05/2016 WILBER CALDWELL MD (DDU) Ot Z02.71 ENCOUNTER FOR DISABILITY DETERMINATION 12/12/2016 NATHAN BRAUN, ANDREI Hernandez Ot R56.9 UNSPECIFIED CONVULSIONS 12/12/2016 EUSEBIO ZARCO Ot M75.111 INCOMPLETE ROTATR-CUFF TEAR/RUPTR OF R S 12/12/2016 THI BRAUN, JODY Angelo Ot R56.9 UNSPECIFIED CONVULSIONS 12/13/2016 DARION TAYLOR MD Ot F17.210 NICOTINE DEPENDENCE, CIGARETTES, UNCOMPL 12/13/2016 DARION TAYLOR MD Ot G40.909 EPILEPSY, UNSP, NOT INTRACTABLE, WITHOUT 12/13/2016 DARION TAYLOR MD Ot I10 ESSENTIAL (PRIMARY) HYPERTENSION 12/13/2016 DARION TAYLOR MD Ot S50.312A ABRASION OF LEFT ELBOW, INITIAL ENCOUNTE 12/13/2016 DARION TAYLOR MD Ot W01.0XXA FALL SAME LEV FROM SLIP/TRIP W/O STRIKE 12/13/2016 DARION TAYLOR MD Ot Y99.8 OTHER EXTERNAL CAUSE STATUS 12/13/2016 DARION TAYLOR MD Ot Z79.899 OTHER LEGAL AID (CURRENT) DRUG THERAPY 12/16/2016 DARION TAYLOR MD Ot F17.210 NICOTINE DEPENDENCE, CIGARETTES, UNCOMPL 12/16/2016 DARION TAYLOR MD Ot G40.909 EPILEPSY, UNSP, NOT INTRACTABLE, WITHOUT 12/16/2016 DARION TAYLOR MD Ot I10 ESSENTIAL (PRIMARY) HYPERTENSION 12/16/2016 DARION TAYLOR MD Ot S50.312A ABRASION OF LEFT ELBOW, INITIAL ENCOUNTE 12/16/2016 DARION TAYLOR MD Ot W01.0XXA FALL SAME LEV FROM SLIP/TRIP W/O STRIKE 12/16/2016 DARION TAYLOR MD Ot Y99.8 OTHER EXTERNAL CAUSE STATUS 12/16/2016 DARION TAYLOR MD, Ot Z79.899 OTHER LEGAL AID (CURRENT) DRUG THERAPY Procedures Code Description [place] [address] XRAY KNEE RIGHT 1 OR 2 VIEWS 01/09/2013 48587 XRAY TOE(S) RIGHT MIN 2 VIEWS 01/09/2013 54978 PSYCH DIAGNOSTIC EVALUATION 05/18/2013 79221 PSYCHO TESTING 1 HR W COMP 06/01/2013 65854 INFLUENZA A & B (IN-HOUSE) 06/05/2013 13796 PSYTX PT&/FAMILY 45 MINUTES 06/21/2013 24653 PSYTX PT&/FAMILY 45 MINUTES 08/06/2013 36785 ROUTINE VENIPUNCTURE 08/23/2013 50264 CMP 08/23/2013 20127 VIT B 12 2012 01640 FOLATE 2012 36600 CBC 08/23/2013 27890 PSYTX PT&/FAMILY 45 MINUTES 10/10/2013 1469737 GFR CALC (RESULT ONLY) 11/07/2013 88885 BMP 11/07/2013 28873 URIC ACID 2013 03176 CRP 11/07/2013 25929 PSYTX PT&/FAMILY 45 MINUTES 11/08/2013 94815 PSYTX PT&/FAMILY 45 MINUTES 12/04/2013 28968 PSYTX PT&/FAMILY 45 MINUTES 01/01/2014 84658 PSYTX PT&/FAMILY 45 MINUTES 02/22/2014 17592 XRAY ANKLE R COMP MIN, 3 VIEWS 03/20/2014 03521 HERPES SIMPLEX CULTURE 06/13/2014 20074 ROUTINE VENIPUNCTURE 12/30/2014 50834 H PYLORI (IN-HOUSE) 12/30/2014 45912 A1C (IN-HOUSE) 42671 CBC 12/30/2014 1564836 GFR CALC (RESULT ONLY) 12/30/2014 56298 CMP 12/30/2014 42090 LIPID PANEL 12/30 67164 URIC ACID 2014 Results Test Result Range [id number] - 05/25/16 07:41 Serum or plasma urea nitrogen measurement (mass/volume) 12 mg/dL 7-18 Serum or plasma creatinine measurement (mass/volume) 0.99 mg /dL 0.60-1.30 Serum or plasma urea nitrogen/creatinine mass ratio 12 NRG Serum or plasma creatinine measurement with calculation of estimated glomerular filtration rate > NRG Complete blood count (CBC) with automated white blood cell (WBC) differential - 06/11/16 11:50 Blood leukocytes automated count (number/volume) 16.4 10*3/ uL 4.3-11.0 Blood erythrocytes automated count (number/volume) 5.33 10*6 /uL 4.35-5.85 Venous blood hemoglobin measurement (mass/volume) 15.4 g/dL 13.3-17.7 Blood hematocrit (volume fraction) 44 % 40-54 Automated erythrocyte mean corpuscular volume 82 [foz_us] 80-99 Automated erythrocyte mean corpuscular hemoglobin (mass per erythrocyte) 29 pg 25-34 Automated erythrocyte mean corpuscular hemoglobin concentration measurement ( mass/volume) 35 g/dL 32-36 Automated erythrocyte distribution width ratio 12.9 % 10.0-14.5 Automated blood platelet count (count/volume) 293 10*3/uL 130-400 Automated blood platelet mean volume measurement 9.0 [foz_us ] 7.4-10.4 Automated blood neutrophils/100 leukocytes 82 % 42-75 Automated blood lymphocytes/100 leukocytes 12 % 12-44 Blood monocytes/100 leukocytes 6 % 0-12 Automated blood eosinophils/100 leukocytes 0 % 0-10 Automated blood basophils/100 leukocytes 0 % 0-10 Blood neutrophils automated count (number/volume) 13.4 10*3 1.8-7.8 Blood lymphocytes automated count (number/volume) 2.0 10*3 1.0-4.0 Blood monocytes automated count (number/volume) 0.9 10*3 0.0-1.0 Automated eosinophil count 0.1 10*3/uL 0.0-0.3 Automated blood basophil count (count/volume) 0.1 10*3/uL 0.0-0.1 Blood manual differential performed detection - 06/11/16 11:50 Blood monocytes/100 leukocytes 8 % NRG Manual blood segmented neutrophils/100 leukocytes 75 % NRG Manual blood lymphocytes/100 leukocytes 10 % NRG Manual eosinophils/100 leukocytes in nose 2 % NRG Blood lymphocytes variant/100 leukocytes 5 % NRG Blood erythrocyte morphology finding identification NORMAL NRG Capillary blood glucose measurement by glucometer (mass/volume) - 06/11/16 11: 55 Capillary blood glucose measurement by glucometer (mass/volume) 170 mg/dL 70-110 Comprehensive metabolic panel - 06/11/16 12:17 Serum or plasma sodium measurement (moles/volume) 137 mmol/ L 135-145 Serum or plasma potassium measurement (moles/volume) 4.1 mmol/L 3.6-5.0 Serum or plasma chloride measurement (moles/volume) 104 mmol /L 98-107 Carbon dioxide 18 mmol/L 21-32 Serum or plasma anion gap determination (moles/volume) 15 mmol/L 5-14 Serum or plasma urea nitrogen measurement (mass/volume) 14 mg/dL 7-18 Serum or plasma creatinine measurement (mass/volume) 1.09 mg /dL 0.60-1.30 Serum or plasma urea nitrogen/creatinine mass ratio 13 NRG Serum or plasma creatinine measurement with calculation of estimated glomerular filtration rate > NRG Serum or plasma glucose measurement (mass/volume) 165 mg/dL 70-105 Serum or plasma calcium measurement (mass/volume) 9.4 mg/dL 8.5-10.1 Serum or plasma total bilirubin measurement (mass/volume) 0.4 mg/dL 0.1-1.0 Serum or plasma alkaline phosphatase measurement (enzymatic activity/volume) 77 U/L 40-136 Serum or plasma aspartate aminotransferase measurement (enzymatic activity/ volume) 29 U/L 5-34 Serum or plasma alanine aminotransferase measurement (enzymatic activity/volume ) 44 U/L 0-55 Serum or plasma protein measurement (mass/volume) 8.0 g/dL 6.4-8.2 Serum or plasma albumin measurement (mass/volume) 4.7 g/dL 3.2-4.5 Magnesium - 06/11/16 12:17 Magnesium 2.7 mg/dL 1.8-2.4 Serum or plasma thyrotropin measurement by detection limit <=0.05 miu/l (units/ volume) - 06/11/16 12:17 Serum or plasma thyrotropin measurement by detection limit <=0.05 miu/l (units/ volume) 2.66 u[iU]/mL 0.35-4.94 Serum or plasma ethanol measurement (mass/volume) - 06/11/16 12:17 Serum or plasma ethanol measurement (mass/volume) 17 mg/dL <10 Complete urinalysis with reflex to culture - 06/11/16 14:01 Urine color determination YELLOW NRG Urine clarity determination CLEAR NRG Urine pH measurement by test strip 6 5- 9 Specific gravity of urine by test strip 1.025 1.016-1.022 Urine protein assay by test strip, semi-quantitative 1+ NEGATIVE Urine glucose detection by automated test strip NEGATIVE NEGATIVE Erythrocytes detection in urine sediment by light microscopy 2+ NEGATIVE Urine ketones detection by automated test strip 1+ NEGATIVE Urine nitrite detection by test strip NEGATIVE NEGATIVE Urine total bilirubin detection by test strip NEGATIVE NEGATIVE Urine urobilinogen measurement by automated test strip (mass/volume) NORMAL NORMAL Urine leukocyte esterase detection by dipstick NEGATIVE NEGATIVE Automated urine sediment erythrocyte count by microscopy (number/high power field) RARE NRG Automated urine sediment leukocyte count by microscopy (number/high power field ) RARE NRG Bacteria detection in urine sediment by light microscopy NEGATIVE NRG Squamous epithelial cells detection in urine sediment by light microscopy RARE NRG Crystals detection in urine sediment by light microscopy PRESENT NRG Casts detection in urine sediment by light microscopy NONE NRG Mucus detection in urine sediment by light microscopy NEGATIVE NRG Complete urinalysis with reflex to culture NO NRG Amorphous sediment detection in urine sediment by light microscopy FEW DANA URATES NRG Urine drug screening test - 06/11/16 14:01 Urine phencyclidine detection by screening method NEGATIVE NEGATIVE Urine benzodiazepines detection by screening method NEGATIVE NEGATIVE Urine cocaine detection NEGATIVE NEGATIVE Urine amphetamines detection by screening method NEGATIVE NEGATIVE Urine methamphetamine detection by screening method NEGATIVE NEGATIVE Urine cannabinoids detection by screening method POSITIVE NEGATIVE Urine opiates detection by screening method NEGATIVE NEGATIVE Urine barbiturates detection NEGATIVE NEGATIVE Screening urine tricyclic antidepressants detection NEGATIVE NEGATIVE Urine methadone detection by screening method NEGATIVE NEGATIVE Urine oxycodone detection NEGATIVE NEGATIVE Urine propoxyphene detection NEGATIVE NEGATIVE Urine buprenophrine screen NEGATIVE NEGATIVE Complete blood count (CBC) with automated white blood cell (WBC) differential - 06/12/16 07:00 Blood leukocytes automated count (number/volume) 9.0 10*3/ uL 4.3-11.0 Blood erythrocytes automated count (number/volume) 5.02 10*6 /uL 4.35-5.85 Venous blood hemoglobin measurement (mass/volume) 14.4 g/dL 13.3-17.7 Blood hematocrit (volume fraction) 42 % 40-54 Automated erythrocyte mean corpuscular volume 83 [foz_us] 80-99 Automated erythrocyte mean corpuscular hemoglobin (mass per erythrocyte) 29 pg 25-34 Automated erythrocyte mean corpuscular hemoglobin concentration measurement ( mass/volume) 35 g/dL 32-36 Automated erythrocyte distribution width ratio 13.2 % 10.0-14.5 Automated blood platelet count (count/volume) 248 10*3/uL 130-400 Automated blood platelet mean volume measurement 9.1 [foz_us ] 7.4-10.4 Automated blood neutrophils/100 leukocytes 70 % 42-75 Automated blood lymphocytes/100 leukocytes 22 % 12-44 Blood monocytes/100 leukocytes 7 % 0-12 Automated blood eosinophils/100 leukocytes 1 % 0-10 Automated blood basophils/100 leukocytes 0 % 0-10 Blood neutrophils automated count (number/volume) 6.3 10*3 1.8-7.8 Blood lymphocytes automated count (number/volume) 2.0 10*3 1.0-4.0 Blood monocytes automated count (number/volume) 0.6 10*3 0.0-1.0 Automated eosinophil count 0.1 10*3/uL 0.0-0.3 Automated blood basophil count (count/volume) 0.0 10*3/uL 0.0-0.1 Comprehensive metabolic panel - 06/12/16 07:00 Serum or plasma sodium measurement (moles/volume) 138 mmol/ L 135-145 Serum or plasma potassium measurement (moles/volume) 4.0 mmol/L 3.6-5.0 Serum or plasma chloride measurement (moles/volume) 106 mmol /L 98-107 Carbon dioxide 20 mmol/L 21-32 Serum or plasma anion gap determination (moles/volume) 12 mmol/L 5-14 Serum or plasma urea nitrogen measurement (mass/volume) 10 mg/dL 7-18 Serum or plasma creatinine measurement (mass/volume) 0.88 mg /dL 0.60-1.30 Serum or plasma urea nitrogen/creatinine mass ratio 11 NRG Serum or plasma creatinine measurement with calculation of estimated glomerular filtration rate > NRG Serum or plasma glucose measurement (mass/volume) 114 mg/dL 70-105 Serum or plasma calcium measurement (mass/volume) 8.8 mg/dL 8.5-10.1 Serum or plasma total bilirubin measurement (mass/volume) 0.9 mg/dL 0.1-1.0 Serum or plasma alkaline phosphatase measurement (enzymatic activity/volume) 59 U/L 40-136 Serum or plasma aspartate aminotransferase measurement (enzymatic activity/ volume) 27 U/L 5-34 Serum or plasma alanine aminotransferase measurement (enzymatic activity/volume ) 40 U/L 0-55 Serum or plasma protein measurement (mass/volume) 6.8 g/dL 6.4-8.2 Serum or plasma albumin measurement (mass/volume) 3.9 g/dL 3.2-4.5 Complete blood count (CBC) with automated white blood cell (WBC) differential - 10/09/16 10:30 Blood leukocytes automated count (number/volume) 10.6 10*3/ uL 4.3-11.0 Blood erythrocytes automated count (number/volume) 4.97 10*6 /uL 4.35-5.85 Venous blood hemoglobin measurement (mass/volume) 14.3 g/dL 13.3-17.7 Blood hematocrit (volume fraction) 41 % 40-54 Automated erythrocyte mean corpuscular volume 83 [foz_us] 80-99 Automated erythrocyte mean corpuscular hemoglobin (mass per erythrocyte) 29 pg 25-34 Automated erythrocyte mean corpuscular hemoglobin concentration measurement ( mass/volume) 35 g/dL 32-36 Automated erythrocyte distribution width ratio 13.1 % 10.0-14.5 Automated blood platelet count (count/volume) 244 10*3/uL 130-400 Automated blood platelet mean volume measurement 8.8 [foz_us ] 7.4-10.4 Automated blood neutrophils/100 leukocytes 77 % 42-75 Automated blood lymphocytes/100 leukocytes 15 % 12-44 Blood monocytes/100 leukocytes 7 % 0-12 Automated blood eosinophils/100 leukocytes 1 % 0-10 Automated blood basophils/100 leukocytes 1 % 0-10 Blood neutrophils automated count (number/volume) 8.1 10*3 1.8-7.8 Blood lymphocytes automated count (number/volume) 1.5 10*3 1.0-4.0 Blood monocytes automated count (number/volume) 0.7 10*3 0.0-1.0 Automated eosinophil count 0.1 10*3/uL 0.0-0.3 Automated blood basophil count (count/volume) 0.1 10*3/uL 0.0-0.1 Comprehensive metabolic panel - 10/09/16 10:30 Serum or plasma sodium measurement (moles/volume) 136 mmol/ L 135-145 Serum or plasma potassium measurement (moles/volume) 4.3 mmol/L 3.6-5.0 Serum or plasma chloride measurement (moles/volume) 106 mmol /L 98-107 Carbon dioxide 21 mmol/L 21-32 Serum or plasma anion gap determination (moles/volume) 9 mmol/L 5-14 Serum or plasma urea nitrogen measurement (mass/volume) 15 mg/dL 7-18 Serum or plasma creatinine measurement (mass/volume) 0.88 mg /dL 0.60-1.30 Serum or plasma urea nitrogen/creatinine mass ratio 17 NRG Serum or plasma creatinine measurement with calculation of estimated glomerular filtration rate > NRG Serum or plasma glucose measurement (mass/volume) 109 mg/dL 70-105 Serum or plasma calcium measurement (mass/volume) 8.9 mg/dL 8.5-10.1 Serum or plasma total bilirubin measurement (mass/volume) 0.5 mg/dL 0.1-1.0 Serum or plasma alkaline phosphatase measurement (enzymatic activity/volume) 74 U/L 40-136 Serum or plasma aspartate aminotransferase measurement (enzymatic activity/ volume) 29 U/L 5-34 Serum or plasma alanine aminotransferase measurement (enzymatic activity/volume ) 42 U/L 0-55 Serum or plasma protein measurement (mass/volume) 7.1 g/dL 6.4-8.2 Serum or plasma albumin measurement (mass/volume) 4.1 g/dL 3.2-4.5 Levetiracetam level - 10/09/16 10:30 Levetiracetam level 15 % NRG Complete blood count (CBC) with automated white blood cell (WBC) differential - 12/12/16 02:15 Blood leukocytes automated count (number/volume) 9.8 10*3/ uL 4.3-11.0 Blood erythrocytes automated count (number/volume) 5.10 10*6 /uL 4.35-5.85 Venous blood hemoglobin measurement (mass/volume) 14.5 g/dL 13.3-17.7 Blood hematocrit (volume fraction) 41 % 40-54 Automated erythrocyte mean corpuscular volume 81 [foz_us] 80-99 Automated erythrocyte mean corpuscular hemoglobin (mass per erythrocyte) 28 pg 25-34 Automated erythrocyte mean corpuscular hemoglobin concentration measurement ( mass/volume) 35 g/dL 32-36 Automated erythrocyte distribution width ratio 13.8 % 10.0-14.5 Automated blood platelet count (count/volume) 271 10*3/uL 130-400 Automated blood platelet mean volume measurement 8.7 [foz_us ] 7.4-10.4 Automated blood neutrophils/100 leukocytes 67 % 42-75 Automated blood lymphocytes/100 leukocytes 24 % 12-44 Blood monocytes/100 leukocytes 7 % 0-12 Automated blood eosinophils/100 leukocytes 2 % 0-10 Automated blood basophils/100 leukocytes 0 % 0-10 Blood neutrophils automated count (number/volume) 6.5 10*3 1.8-7.8 Blood lymphocytes automated count (number/volume) 2.3 10*3 1.0-4.0 Blood monocytes automated count (number/volume) 0.7 10*3 0.0-1.0 Automated eosinophil count 0.2 10*3/uL 0.0-0.3 Automated blood basophil count (count/volume) 0.0 10*3/uL 0.0-0.1 Comprehensive metabolic panel - 12/12/16 02:15 Serum or plasma sodium measurement (moles/volume) 137 mmol/ L 135-145 Serum or plasma potassium measurement (moles/volume) 3.7 mmol/L 3.6-5.0 Serum or plasma chloride measurement (moles/volume) 103 mmol /L 98-107 Carbon dioxide 22 mmol/L 21-32 Serum or plasma anion gap determination (moles/volume) 12 mmol/L 5-14 Serum or plasma urea nitrogen measurement (mass/volume) 19 mg/dL 7-18 Serum or plasma creatinine measurement (mass/volume) 1.36 mg /dL 0.60-1.30 Serum or plasma urea nitrogen/creatinine mass ratio 14 NRG Serum or plasma creatinine measurement with calculation of estimated glomerular filtration rate 57 NRG Serum or plasma glucose measurement (mass/volume) 147 mg/dL 70-105 Serum or plasma calcium measurement (mass/volume) 9.2 mg/dL 8.5-10.1 Serum or plasma total bilirubin measurement (mass/volume) 0.5 mg/dL 0.1-1.0 Serum or plasma alkaline phosphatase measurement (enzymatic activity/volume) 80 U/L 40-136 Serum or plasma aspartate aminotransferase measurement (enzymatic activity/ volume) 29 U/L 5-34 Serum or plasma alanine aminotransferase measurement (enzymatic activity/volume ) 40 U/L 0-55 Serum or plasma protein measurement (mass/volume) 7.8 g/dL 6.4-8.2 Serum or plasma albumin measurement (mass/volume) 4.3 g/dL 3.2-4.5 Magnesium - 12/12/16 02:15 Magnesium 2.5 mg/dL 1.8-2.4 Serum or plasma ethanol measurement (mass/volume) - 12/12/16 02:15 Serum or plasma ethanol measurement (mass/volume) < mg/dL <10 Complete urinalysis with reflex to culture - 12/12/16 03:29 Urine color determination YELLOW NRG Urine clarity determination CLEAR NRG Urine pH measurement by test strip 5 5- 9 Specific gravity of urine by test strip 1.025 1.016-1.022 Urine protein assay by test strip, semi-quantitative 1+ NEGATIVE Urine glucose detection by automated test strip NEGATIVE NEGATIVE Erythrocytes detection in urine sediment by light microscopy NEGATIVE NEGATIVE Urine ketones detection by automated test strip NEGATIVE NEGATIVE Urine nitrite detection by test strip NEGATIVE NEGATIVE Urine total bilirubin detection by test strip NEGATIVE NEGATIVE Urine urobilinogen measurement by automated test strip (mass/volume) 1 mg/dL NORMAL Urine leukocyte esterase detection by dipstick NEGATIVE NEGATIVE Automated urine sediment erythrocyte count by microscopy (number/high power field) NONE NRG Automated urine sediment leukocyte count by microscopy (number/high power field ) NONE NRG Bacteria detection in urine sediment by light microscopy TRACE NRG Squamous epithelial cells detection in urine sediment by light microscopy 0-2 NRG Crystals detection in urine sediment by light microscopy NONE NRG Casts detection in urine sediment by light microscopy PRESENT NRG Mucus detection in urine sediment by light microscopy NEGATIVE NRG Complete urinalysis with reflex to culture NO NRG Hyaline casts detection in urine sediment by light microscopy RARE NRG Other elements identification in urine sediment by light microscopy FEW SPERM NRG Urine drug screening test - 12/12/16 03:29 Urine phencyclidine detection by screening method NEGATIVE NEGATIVE Urine benzodiazepines detection by screening method NEGATIVE NEGATIVE Urine cocaine detection NEGATIVE NEGATIVE Urine amphetamines detection by screening method NEGATIVE NEGATIVE Urine methamphetamine detection by screening method NEGATIVE NEGATIVE Urine cannabinoids detection by screening method POSITIVE NEGATIVE Urine opiates detection by screening method NEGATIVE NEGATIVE Urine barbiturates detection NEGATIVE NEGATIVE Screening urine tricyclic antidepressants detection NEGATIVE NEGATIVE Urine methadone detection by screening method NEGATIVE NEGATIVE Urine oxycodone detection NEGATIVE NEGATIVE Urine propoxyphene detection NEGATIVE NEGATIVE Complete blood count (CBC) with automated white blood cell (WBC) differential - 12/28/16 19:52 Blood leukocytes automated count (number/volume) 9.2 10*3/ uL 4.3-11.0 Blood erythrocytes automated count (number/volume) 5.25 10*6 /uL 4.35-5.85 Venous blood hemoglobin measurement (mass/volume) 15.0 g/dL 13.3-17.7 Blood hematocrit (volume fraction) 43 % 40-54 Automated erythrocyte mean corpuscular volume 82 [foz_us] 80-99 Automated erythrocyte mean corpuscular hemoglobin (mass per erythrocyte) 29 pg 25-34 Automated erythrocyte mean corpuscular hemoglobin concentration measurement ( mass/volume) 35 g/dL 32-36 Automated erythrocyte distribution width ratio 14.1 % 10.0-14.5 Automated blood platelet count (count/volume) 56 10*3/uL 130-400 Automated blood platelet mean volume measurement 10.3 [foz_ us] 7.4-10.4 Automated blood neutrophils/100 leukocytes 83 % 42-75 Automated blood lymphocytes/100 leukocytes 10 % 12-44 Blood monocytes/100 leukocytes 5 % 0-12 Automated blood eosinophils/100 leukocytes 1 % 0-10 Automated blood basophils/100 leukocytes 0 % 0-10 Blood neutrophils automated count (number/volume) 7.7 10*3 1.8-7.8 Blood lymphocytes automated count (number/volume) 0.9 10*3 1.0-4.0 Blood monocytes automated count (number/volume) 0.5 10*3 0.0-1.0 Automated eosinophil count 0.1 10*3/uL 0.0-0.3 Automated blood basophil count (count/volume) 0.0 10*3/uL 0.0-0.1 Comprehensive metabolic panel - 12/28/16 19:52 Serum or plasma sodium measurement (moles/volume) 141 mmol/ L 135-145 Serum or plasma potassium measurement (moles/volume) 4.2 mmol/L 3.6-5.0 Serum or plasma chloride measurement (moles/volume) 109 mmol /L 98-107 Carbon dioxide 20 mmol/L 21-32 Serum or plasma anion gap determination (moles/volume) 12 mmol/L 5-14 Serum or plasma urea nitrogen measurement (mass/volume) 13 mg/dL 7-18 Serum or plasma creatinine measurement (mass/volume) 1.01 mg /dL 0.60-1.30 Serum or plasma urea nitrogen/creatinine mass ratio 13 NRG Serum or plasma creatinine measurement with calculation of estimated glomerular filtration rate > NRG Serum or plasma glucose measurement (mass/volume) 102 mg/dL 70-105 Serum or plasma calcium measurement (mass/volume) 9.0 mg/dL 8.5-10.1 Serum or plasma total bilirubin measurement (mass/volume) 0.8 mg/dL 0.1-1.0 Serum or plasma alkaline phosphatase measurement (enzymatic activity/volume) 86 U/L 40-136 Serum or plasma aspartate aminotransferase measurement (enzymatic activity/ volume) 23 U/L 5-34 Serum or plasma alanine aminotransferase measurement (enzymatic activity/volume ) 27 U/L 0-55 Serum or plasma protein measurement (mass/volume) 7.7 g/dL 6.4-8.2 Serum or plasma albumin measurement (mass/volume) 4.4 g/dL 3.2-4.5 Magnesium - 12/28/16 19:52 Magnesium 2.3 mg/dL 1.8-2.4 Serum or plasma creatine kinase measurement (enzymatic activity/volume) - 12/28 19:52 Serum or plasma creatine kinase measurement (enzymatic activity/volume) 112 U/L 30-200 Serum or plasma creatine kinase MB measurement (enzymatic activity/volume) - 19:52 Serum or plasma creatine kinase MB measurement (enzymatic activity/volume) 1.5 ng/mL <6.6 Serum or plasma thyrotropin measurement by detection limit <=0.05 miu/l (units/ volume) - 12/28/16 19:52 Serum or plasma thyrotropin measurement by detection limit <=0.05 miu/l (units/ volume) 4.06 u[iU]/mL 0.35-4.94 Serum or plasma ethanol measurement (mass/volume) - 12/28/16 19:52 Serum or plasma ethanol measurement (mass/volume) < mg/dL <10 Serum heterophile antibody titer - 12/28/16 20:01 Serum heterophile antibody titer NEGATIVE NEGATIVE PT panel in platelet poor plasma by coagulation assay - 12/28/16 20:01 Prothrombin time (PT) in platelet poor plasma by coagulation assay 13.5 s 12.2-14.7 INR in platelet poor plasma or blood by coagulation assay 1.1 0.8-1.4 Activated partial thromboplastin time (aPTT) in platelet poor plasma bycoagulation assay - 12/28/16 20:01 Activated partial thromboplastin time (aPTT) in platelet poor plasma bycoagulation assay 28 s 24-35 Blood lactic acid measurement (moles/volume) - 12/28/16 20:01 Blood lactic acid measurement (moles/volume) 1.13 mmol/L 0.50-2.00 Bacterial blood culture - 12/28/16 20:01 Bacterial blood culture NG NR Bacterial blood culture - 12/28/16 20:17 Bacterial blood culture NG NR Streptococcus pyogenes antigen detection - 12/28/16 20:25 Streptococcus pyogenes antigen detection NEGATIVE NEGATIVE Influenza virus A and B antigen detection - 12/28/16 20:25 FLU RESULT NEGATIVE FOR INFLUENZA A AND B ANTIGENS BY IA NR Bacterial throat culture - 12/28/16 20:25 Bacterial throat culture [facility] NR Complete urinalysis with reflex to culture - 12/28/16 20:49 Urine color determination YELLOW NRG Urine clarity determination CLEAR NR Urine pH measurement by test strip 6.5 5 -9 Specific gravity of urine by test strip 1.010 1.016-1.022 Urine protein assay by test strip, semi-quantitative NEGATIVE NEGATIVE Urine glucose detection by automated test strip NEGATIVE NEGATIVE Erythrocytes detection in urine sediment by light microscopy 1+ NEGATIVE Urine ketones detection by automated test strip NEGATIVE NEGATIVE Urine nitrite detection by test strip NEGATIVE NEGATIVE Urine total bilirubin detection by test strip NEGATIVE NEGATIVE Urine urobilinogen measurement by automated test strip (mass/volume) 1 mg/dL NORMAL Urine leukocyte esterase detection by dipstick 1+ NEGATIVE Automated urine sediment erythrocyte count by microscopy (number/high power field) RARE NRG Automated urine sediment leukocyte count by microscopy (number/high power field ) [HPF] NRG Bacteria detection in urine sediment by light microscopy NONE NRG Squamous epithelial cells detection in urine sediment by light microscopy 0-2 NRG Crystals detection in urine sediment by light microscopy NONE NRG Casts detection in urine sediment by light microscopy NONE NRG Mucus detection in urine sediment by light microscopy NEGATIVE NRG Complete urinalysis with reflex to culture NO NRG Urine drug screening test - 12/28/16 20:49 Urine phencyclidine detection by screening method NEGATIVE NEGATIVE Urine benzodiazepines detection by screening method NEGATIVE NEGATIVE Urine cocaine detection NEGATIVE NEGATIVE Urine amphetamines detection by screening method NEGATIVE NEGATIVE Urine methamphetamine detection by screening method NEGATIVE NEGATIVE Urine cannabinoids detection by screening method POSITIVE NEGATIVE Urine opiates detection by screening method NEGATIVE NEGATIVE Urine barbiturates detection NEGATIVE NEGATIVE Screening urine tricyclic antidepressants detection NEGATIVE NEGATIVE Urine methadone detection by screening method NEGATIVE NEGATIVE Urine oxycodone detection NEGATIVE NEGATIVE Urine propoxyphene detection NEGATIVE NEGATIVE Encounters ACCT No. Visit Date/Time Discharge Status Pt. Type Provider Facility Loc./Unit Complaint [id number] 12/30/2014 09:45:00 12/30/2014 23: 59:59 CLS Outpatient JUAN ALCANTARA APRN [id number] 09/30/2014 12:41:00 09/30/2014 23: 59:59 CLS Outpatient RICARDO MELO DO [id number] 07/02/2014 16:40:00 07/02/2014 23: 59:59 CLS Outpatient NATHAN BRAUN, ANDREI [id number] 06/13/2014 09:20:00 06/13/2014 23: 59:59 CLS Outpatient ANNA HECTOR MD [id number] 04/22/2014 09:57:00 04/22/2014 23: 59:59 CLS Outpatient VASU KUMAR, JEAN Caballero [id number] 03/25/2014 09:27:00 03/25/2014 23: 59:59 CLS Outpatient RICARDO MELO DO [id number] 03/22/2014 11:46:00 03/22/2014 23: 59:59 CLS Outpatient RICARDO MELO DO [id number] 03/20/2014 07:48:00 03/20/2014 23: 59:59 CLS Outpatient SKIP MCKNIGHT APRN Federico [id number] 02/22/2014 09:10:00 02/22/2014 23: 59:59 CLS Outpatient JEAN LEONE PHD [id number] 12/31/2013 09:01:00 12/31/2013 23: 59:59 CLS Outpatient JEAN LEONE PHD [id number] 12/03/2013 08:55:00 12/03/2013 23: 59:59 CLS Outpatient JEAN LEONE PHD [id number] 11/08/2013 10:00:00 11/08/2013 23: 59:59 CLS Outpatient JEAN LEONE PHD [id number] 10/09/2013 09:49:00 10/09/2013 23: 59:59 CLS Outpatient JEAN LEONE PHD [id number] 08/23/2013 14:43:00 08/23/2013 23: 59:59 CLS Outpatient ANNA HECTOR MD [id number] 08/06/2013 07:55:00 08/06/2013 23: 59:59 CLS Outpatient JEAN LEONE PHD [id number] 06/20/2013 07:48:00 06/20/2013 23: 59:59 CLS Outpatient JEAN LEONE PHD [id number] 06/05/2013 08:38:00 06/05/2013 23: 59:59 CLS Outpatient RICARDO MELO DO [id number] 05/31/2013 10:46:00 05/31/2013 23: 59:59 CLS Outpatient JEAN LEONE PHD [id number] 04/03/2012 13:11:00 04/03/2012 23: 59:59 CLS Outpatient RICARDO MELO DO [id number] 05/17/2013 09:55:00 Document Registration [id number] 01/09/2013 11:13:00 Document Registration
--- OUTSIDE RECORDS SUMMARY | 2017-01-04 11:38 | XMS REPORT ---
Author Author DYAN MENON [facility] eClinicalWorks Address Unknown Phone Unavailable Care Team Providers Care Business Planner Name Role Phone DYAN MENON CP Unavailable Allergies No Known Allergies Problems Problem Type Condition Code Onset Dates [...] in soft tissues of limb 729.5 Active Problem Facial paralysis on left side [...] joint, ankle and foot 719.47 Active Medications No Known Medications Results No Known Results Summary Purpose eClinicalWorks Submission
--- OUTSIDE RECORDS SUMMARY | 2017-01-04 11:38 | XMS REPORT ---
Author Author ZULAY BARROW Organization e[employer] Address Unknown Phone Unavailable Care Team Providers Care Boom Operator Name Role Phone ZULAY BARROW CP Unavailable Allergies, Adverse Reactions, Alerts Substance Reaction Event Type N.K.D.A. Info Not Available Non Drug Allergy Problems Problem Type Condition Code Onset Dates Condition Status Assessment Right elbow pain M25.521 Active Assessment History of acute gouty arthritis Z87.39 Active Assessment Onychomycosis B35.1 Active Problem Right elbow pain M25.521 Active Problem Essential hypertension I10 Active Problem Onychomycosis B35.1 Active Assessment Essential hypertension I10 Active Assessment Right medial knee pain M25.561 Active Problem Right medial knee pain M25.561 Active Problem History of acute gouty arthritis Z87.39 Active Medications Medication Code System Code Instructions Start Date End Date Status Dosage Lisinopril [facility] [address]-17 10 MG Orally Once a day January 20, 2015 1 tablet Naproxen NDC 0 not defined Lisinopril [facility] [address]-98 20 mg Orally Once a day May 11, 2016 1 tablet Allopurinol [facility] [address]-77 300 MG Orally Once a day March 22, 2016 Jun 20, 2016 1 tablet Colcrys [facility] [address]-72 0.6 MG Orally Once a day May 11, 2016 Aug 09, 2016 1 tablet Procedures Procedure Coding System Code Date ASSAY OF BLOOD/URIC ACID CPT-4 56915 May 11, 2016 X-RAY EXAM OF ELBOW CPT-4 67375 May 11, 2016 COMPREHEN METABOLIC PANEL CPT-4 72649 May 11, 2016 VENIPUNCT, ROUTINE* CPT-4 19300 May 11, 2016 Office Visit, Est Pt., Level 4 CPT-4 50787 May 11, 2016 Vital Signs Date/Time: May 11, 2016 Cardiac Monitoring Heart Rate 76 bpm Weight 277.8 lbs Height 72 in BMI 37.67 Index Blood Pressure Diastolic 94 mmHg Blood Pressure Systolic 148 mmHg Results No Known Results Summary Purpose eClinicalWorks Submission
--- OUTSIDE RECORDS SUMMARY | 2017-01-04 11:38 | XMS REPORT ---
Author Author ZULAY BARROW Organization e[employer] Address Unknown Phone Unavailable Care Team Providers Care Forming Machine Upkeep Mechanic Name Role Phone ZULAY BARROW CP Unavailable Allergies, Adverse Reactions, Alerts Substance Reaction Event Type N.K.D.A. Info Not Available Non Drug Allergy Problems Problem Type Condition Code Onset Dates Condition Status Assessment History of acute gouty arthritis Z87.39 Active Assessment Seizure R56.9 Active Assessment Essential hypertension I10 Active Assessment Acute pain of right shoulder M25.511 Active Problem Seizure R56.9 Active Problem Onychomycosis B35.1 Active Problem Acute pain of right shoulder M25.511 Active Problem Right medial knee pain M25.561 Active Problem History of acute gouty arthritis Z87.39 Active Problem Right elbow pain M25.521 Active Problem Essential hypertension I10 Active Medications Medication Code System Code Instructions Start Date End Date Status Dosage Allopurinol [facility] [address]-72 300 MG Orally Once a day March 22, 2016 Jun 20, 2016 1 tablet Keppra [facility] [address]-14 1000 MG Orally 2 times a day May 24, 2016 1 tablet Lisinopril [facility] [address]-92 20 mg Orally Once a day May 11, 2016 1 tablet Procedures Procedure Coding System Code Date Office Visit, Est Pt., Level 3 CPT-4 95196 Jun 15, 2016 Vital Signs Date/Time: Jun 15, 2016 Cardiac Monitoring Heart Rate 80 bpm Weight 276.9 lbs Height 72 in BMI 37.55 Index Blood Pressure Diastolic 84 mmHg Blood Pressure Systolic 140 mmHg Results No Known Results Summary Purpose eClinicalWorks Submission
--- OUTSIDE RECORDS SUMMARY | 2017-01-04 11:38 | XMS REPORT ---
Author RICARDO Mike Organization eClinicalWorks Address Unknown Phone Unavailable Care Team Providers Care Pickler Helper Name Role Phone RICARDO MELO CP Unavailable Allergies No Known Allergies Problems [...]
--- OUTSIDE RECORDS SUMMARY | 2017-01-04 11:39 | XMS REPORT ---
Author Author DYAN MENON [facility] eClinicalWorks Address Unknown Phone Unavailable Care Team Providers Care Community Support Associate Name Role Phone DYAN MENON CP Unavailable Allergies, Adverse Reactions, Alerts Substance [...] Start Date End Date Status Dosage Lisinopril [facility] [address]-16 10 MG Orally Once a day January 20, 2015 1 tablet Valtrex [facility] [address]-62 1 GM Orally 3 times a day Aug 13, 2015 1 tablet Allopurinol [facility] [address]-43 100 MG Orally Once a day January 20, 2015 1 tablet Procedures Procedure Coding System Code Date Office Visit, Est Pt., Level 3 CPT-4 69763 Aug 25, 2015 Vital Signs Date/Time: Aug 25, 2015 Temperature 98.6 F Weight 285.8 lbs Height 72 in BMI 38.76 Index Blood Pressure Diastolic 86 mmHg Blood Pressure Systolic 132 mmHg Cardiac Monitoring Heart Rate 76 bpm Results No Known Results Summary Purpose eClinicalWorks Submission
--- OUTSIDE RECORDS SUMMARY | 2017-01-04 11:39 | XMS REPORT ---
Author DYAN Villagomez [facility] eClinicalWorks Address Unknown Phone Unavailable Care Team Providers Care Electron Beam Welding Machine Operator Name Role Phone DYAN MENON Unavailable Allergies, [...] Lisinopril [facility] [address]-45 10 MG Orally Once a day January 20, 2015 1 tablet Allopurinol [facility] [address]-13 100 MG Orally Once a day January 20, 2015 1 tablet PredniSONE [facility] [address]-87 10 MG Orally Once a day Aug 13, 2015 6 tabs daily x 3 days, 4 tabs x 3 days, 2 tabsx 3 days, 1 tab x 3 days Valtrex [facility] [address]-41 1 GM Orally 3 times a day Aug 13, 2015 1 tablet Procedures Procedure Coding System Code Date Office Visit, Est Pt., Level 3 CPT-4 18042 Aug 14, 2015 Vital Signs Date/Time: Aug 14, 2015 Temperature 98.0 F Weight 281.5 lbs Height 72 in BMI 38.17 Index Blood Pressure Diastolic 86 mmHg Blood Pressure Systolic 138 mmHg Cardiac Monitoring Heart Rate 82 bpm Results No Known Results Summary Purpose eClinicalWorks Submission
--- OUTSIDE RECORDS SUMMARY | 2017-01-04 11:39 | XMS REPORT ---
Author Author ANDREI EVANS Organization [facility] Address [address] [place] [address] Care Team Providers Care Math And Sciences Department Chair Name Role Phone ANDREI EVANS Unavailable PROBLEMS Type Condition ICD9-CM Code [id number] Code Onset Dates Condition Status SNOMED Code Assessment Seizure R56.9 May, Active 73432971 Assessment Acute pain of right shoulder M25.511 May, Active 42691823 Problem Seizure R56.9 Active 25347150 Problem Onychomycosis B35.1 Active 858929497 Problem Right medial knee pain M25.561 Active 80459481 Problem History of acute gouty arthritis Z87.39 Active 182836801 Problem Right elbow pain M25.521 Active 05144966 Problem Essential hypertension I10 Active 51652880 ALLERGIES Substance Reaction Event Type Date Status N.K.D.A. Unknown Non Drug Allergy May, Unknown SOCIAL HISTORY No smoking Hx information available PLAN OF CARE VITAL SIGNS Height 72 in 2016-05-27 Weight 270.8 lbs 2016-05-27 Heart Rate 64 bpm 2016-05-27 Respiratory Rate 20 2016-05-27 BMI 36.72 kg/m2 2016-05-27 Blood pressure systolic 140 mmHg 2016-05-27 Blood pressure diastolic 86 mmHg 2016-05-27 MEDICATIONS Medication Instructions Dosage Frequency Start Date End Date Duration Status Lisinopril 20 mg Orally Once a day 1 tablet 24h Apr, 30 day(s) Active Allopurinol 300 MG Orally Once a day 1 tablet 24h Mar, Jun, 30 day(s) Active Keppra 500 MG Orally 2 times a day 1 tablet 12h 12 May, 2016 Active RESULTS No Results PROCEDURES Procedure Date Ordered Related Diagnosis Body Site Office Visit, Est Pt., Level 3 May 27, 2016 IMMUNIZATIONS No Known Immunizations
--- OUTSIDE RECORDS SUMMARY | 2017-01-04 11:39 | XMS REPORT ---
Author ZULAY Griffin Organization eClinicalWorks Address Unknown Phone Unavailable Care Team Providers Care Fur Cleaner Name Role Phone ZULAY BARROW Unavailable Allergies No Known Allergies Problems Problem Type Condition Code Onset Dates Condition Status Problem Seizure R56.9 Active Problem Onychomycosis B35.1 Active Problem Acute pain of right shoulder M25.511 Active Problem Right medial knee pain M25.561 Active Problem History of acute gouty arthritis Z87.39 Active Problem Right elbow pain M25.521 Active Problem Essential hypertension I10 Active Medications No Known Medications Results No Known Results Summary Purpose eClinicalWorks Submission
--- OUTSIDE RECORDS SUMMARY | 2017-01-04 11:39 | XMS REPORT ---
Author Author DYAN MENON [facility] eClinicalWorks Address Unknown Phone Unavailable Care Team Providers Care Forestry Engineer Name Role Phone DYAN MENON CP Unavailable [...]
--- OUTSIDE RECORDS SUMMARY | 2017-01-04 11:39 | XMS REPORT ---
Author Author DYAN MENON [facility] eClinicalWorks Address Unknown Phone Unavailable Care Team Providers Care Bulk Delivery Driver Name Role Phone DYAN MENON CP Unavailable Allergies, Adverse Reactions, Alerts Substance Reaction Event Type N.K.D.A. Info Not Available Non Drug Allergy Problems Problem Type Condition Code Onset Dates Condition Status Problem Pain in joint, ankle and foot 719.47 Active Problem Other diseases of nasal cavity and sinuses 478.19 Active Problem Intestinal infection due to other organism, NEC 008.8 Active Problem Other stomatitis and mucositis (ulcerative) 528.09 Active Problem Pain in soft tissues of limb 729.5 Active Problem Unspecified episodic mood disorder 296.90 Active Assessment Facial numbness R20.0 Active Problem Facial numbness R20.0 Active Problem Nausea with vomiting 787.01 Active Problem Postnasal drip 784.91 Active Problem Diarrhea 787.91 Active Problem Other and unspecified bipolar disorders 296.89 Active Problem Cough 786.2 Active Problem Fever, unspecified 780.60 Active Problem Pain in joint, lower leg 719.46 Active Problem Essential hypertension, malignant 401.0 Active Problem Carpal tunnel syndrome 354.0 Active Problem Cellulitis and abscess of unspecified site 682.9 Active Problem Torticollis, unspecified 723.5 Active Problem Sebaceous cyst 706.2 Active Problem Unspecified infective otitis externa 380.10 Active Problem Unspecified site of ankle sprain and strain 845.00 Active Medications Medication Code System Code Instructions Start Date End Date Status Dosage Lisinopril [facility] [address]-56 10 MG Orally Once a day January 20, 2015 1 tablet Allopurinol [facility] [address]-66 100 MG Orally Once a day January 20, 2015 1 tablet Procedures Procedure Coding System Code Date Office Visit, Est Pt., Level 3 CPT-4 73024 Aug 13, 2015 Vital Signs Date/Time: Aug 13, 2015 Blood Pressure Diastolic 100 mmHg Blood Pressure Systolic 138 mmHg Weight 278.7 lbs Results No Known Results Summary Purpose eClinicalWorks Submission
--- OUTSIDE RECORDS SUMMARY | 2017-01-04 11:39 | XMS REPORT ---
Author ZULAY Griffin Organization eClinicalWorks Address Unknown Phone Unavailable Care Team Providers Care Machine Turner Name Role Phone ZULAY BARROW Unavailable Allergies [...]
--- OUTSIDE RECORDS SUMMARY | 2017-01-04 11:39 | XMS REPORT ---
Author Author DYAN MENON [facility] eClinicalWorks Address Unknown Phone Unavailable Care Team Providers Care Kiln Feeder Name Role Phone DYAN MENON Unavailable Allergies, [...] Start Date End Date Status Dosage Lisinopril [facility] [address]-16 10 MG Orally Once a day January 20, 2015 1 tablet Procedures Procedure Coding System Code Date Office Visit, Est Pt., Level 3 CPT-4 33553 Sep 09, 2015 Vital Signs Date/Time: Sep 09, 2015 Temperature 97.6 F Weight 285.9 lbs Height 72 in BMI 38.77 Index Blood Pressure Diastolic 86 mmHg Blood Pressure Systolic 130 mmHg Cardiac Monitoring Heart Rate 76 bpm Results No Known Results Summary Purpose eClinicalWorks Submission
--- OUTSIDE RECORDS SUMMARY | 2017-01-04 11:39 | XMS REPORT ---
Author Author ANDREI EVANS Organization [facility] Address [address] [place] [address] Care Team Providers Care Rv Technician Name Role Phone ANDREI EVANS Unavailable PROBLEMS Type Condition ICD9-CM Code [id number] Code Onset Dates Condition Status SNOMED Code Assessment Seizure R56.9 May, Active 74468230 Assessment Right shoulder injury, initial encounter S49.91XA May, Active 261661264 Problem Seizure R56.9 Active 72855380 Problem Onychomycosis B35.1 Active 689841096 Problem Right medial knee pain M25.561 Active 43163441 Problem History of acute gouty arthritis Z87.39 Active 886660695 Problem Right elbow pain M25.521 Active 33718153 Problem Essential hypertension I10 Active 39444233 ALLERGIES Substance Reaction Event Type Date Status N.K.D.A. Unknown Non Drug Allergy May, Unknown SOCIAL HISTORY No smoking Hx information available PLAN OF CARE VITAL SIGNS Height 72 in 2016-05-24 Weight 271.7 lbs 2016-05-24 Heart Rate 60 bpm 2016-05-24 Respiratory Rate 20 2016-05-24 BMI 36.85 kg/m2 2016-05-24 Blood pressure systolic 125 mmHg 2016-05-24 Blood pressure diastolic 90 mmHg 2016-05-24 MEDICATIONS Medication Instructions Dosage Frequency Start Date End Date Duration Status Keppra 500 MG Orally 2 times a day 1 tablet 12h May, Active Lisinopril 20 mg Orally Once a day 1 tablet 24h 30 Apr, 2016 30 day(s) Active Allopurinol 300 MG Orally Once a day 1 tablet 24h Mar, Jun, 30 day(s) Active RESULTS Name Result Date Reference Range URINE DRUG SCREEN (IN HOUSE) 2016-05-24 Lot # [id number] Exp date Control + COCAINE Negative AMPH Negative MTD Negative THC Positive OPIATE Negative BENZO Negative PCP Negative BAR Negative OXY Positive MAMP Negative TCA Negative MDMA Negative UA LONG DIP (IN HOUSE) 2016-05-24 Lot # [id number] Exp date Clarity Clear Color Yellow Odor None GLU Negative VELMA Negative KET Negative SG 1.025 BLO Trace-Lysed pH 5.0 Protein Negative URO 0.2 NIT Negative LAURENT Negative Lot # [id number] Exp date Xray : Shoulder, Right 2 view (IN HOUSE) 2016-05-24 CT Scan : Brain w/o Contrast 2016-05-25 PROCEDURES Procedure Date Ordered Related Diagnosis Body Site X-RAY EXAM OF SHOULDER May 24, 2016 COMPREHEN METABOLIC PANEL May 24, 2016 ASSAY THYROID STIM HORMONE May 24, 2016 COMPLETE CBC W/AUTO DIFF WBC May 24, 2016 Office Visit, Est Pt., Level 5 May 24, 2016 URINALYSIS, AUTO, W/O SCOPE May 24, 2016 IMMUNIZATIONS No Known Immunizations
--- OUTSIDE RECORDS SUMMARY | 2017-01-04 11:39 | XMS REPORT ---
Author ZULAY Griffin Organization eClinicalWorks Address Unknown Phone Unavailable Care Team Providers Care Analytical Strategist Name Role Phone ZULAY BARROW Unavailable Allergies [...]
--- OUTSIDE RECORDS SUMMARY | 2017-01-04 11:40 | XMS REPORT ---
Author Author ZULAY BARROW Organization eClinicalWorks Address Unknown Phone Unavailable Care Team Providers Care Heel Seat Laster Name Role Phone ZULAY BARROW Unavailable Allergies [...] Start Date End Date Status Dosage Lisinopril [facility] [address]-75 20 mg Orally Once a day May 11, 2016 1 tablet Results No Known Results Summary Purpose eClinicalWorks Submission
--- OUTSIDE RECORDS SUMMARY | 2017-01-04 11:40 | XMS REPORT | Continuity of Care Document ---
Author Author [facility] Organization [facility] Address Unknown Phone Unavailable Care Team Providers Care Mica Layer Name Role Phone NORIS LOPEZ DO PP Insurance Providers Payer Name Policy Number Subscriber Name Relationship Self Pay Devon Anderson Jr 01 Self / Same As Patient Advance Directives Directive Response Recorded Date Advance Directives N 06/06/13 11:18am Health Care Power of Outside Property Agent N 06/06/13 11:18am Organ Donor Y 06/06/13 11:18am Problems No Known Problems or Medical conditions. Family History History Response Recorded Date/Time Hx Family Cancer N 08/19/08 11:26pm Hx Family Cardiac Disorders Y 08/19/08 11 :26pm Hx Family Myocardial Infarction Y BROTHER AT AGE 26 08/19/08 11:26pm Social History History Response Recorded Date/Time Alcohol Use Denies Use 06/06/13 11:18am Recreational Drug Use N 06/06/13 11:18am Allergies, Adverse Reactions, Alerts Allergen Type Severity Reaction Last Updated No Known Drug Allergies 08/20/08 Medications Medication Dose Units Route Sig Qty Days Acetaminophen/Hydrocodone Bitart (Hydrocodone-Apap 10-325 Tablet) 0.5 - 1 Each PO Q 4 - 6 HRS PRN 20 [Lipazil] Acetaminophen/Hydrocodone Bitart (Vicodin 5-500 Tablet) 1 - 2 Each PO Q4HR PRN 10 Response Recorded Date/Time Status not known Unknown Results No Known Relevant Diagnostic Tests, Laboratory Data and/or Discharge Summary. Procedures Procedure Code Date LEFT HEART CARDIAC CATH 37.22 08/20/08 CORONAR ARTERIOGR-2 CATH 88.56 08/20/08 LT HEART ANGIOCARDIOGRAM 88.53 08/20/08 CONTRAST AORTOGRAM 88.42 08/20/08 Encounters Encounter Location Date/Time Departed Emergency Room [facility] 11:11am Discharged Inpatient [facility] 12: 00am
== END 2016-12-12 04:32 | disposition home or self-care (01) ==
LOC: EDUNIT# 02:01 → ER 02:02
DX: G40.909 Epilepsy, unspecified, not intractable, without status epilepticus (principal); S50.312A Abrasion of left elbow, initial encounter; I10 Essential (primary) hypertension; F17.210 Nicotine dependence, cigarettes, uncomplicated; Z79.899 Other long term (current) drug therapy; W01.0XXA Fall on same level from slipping, tripping and stumbling without subsequent striking against object, initial encounter; Y99.8 Other external cause status
CPT/HCPCS: 36415; 80053; 80306; 80320; 81000; 83735; 85025; 96360

== ENCOUNTER 2016-12-28 19:07 | Emergency (ER) | payer BC ==
[~2016-12-28] VITALS: Ht 182.9 cm; Wt 117.9 kg
[~2016-12-28 19:07] MED LIST changes: +ALLO100T PO; +TOPI50TA37 PO; +ZONI100C3 PO
--- NOTE | 2016-12-28 19:33 | ED General ---
General Stated Complaint: SEIZURE/VOMITING Source of Information: Patient History of Present Illness Time Seen by Provider: 19:19 Initial Comments PT ARRIVES VIA POV FROM HOME PT THINKS HE MIGHT BE GETTING READY TO HAVE A SEIZURE, BECAUSE HIS RIGHT HAND STARTED SHAKING 1/2 HOUR AGO --BEGAN WHILE SITTING IN CHAIR OUTSIDE IN THE YARD PT STATES AN HOUR AGO, HE HAD A HEADACHE AND HAD NAUSEA AND VOMITING AND DIARRHEA--VOMITED X 3, DIARRHEA X 1--HAD LOWER ABDOMINAL CRAMPING JUST PRIOR TO DIARRHEA --AND IT WENT AWAY AFTER HE HAD DIARRHEA HEADACHE WENT AWAY AFTER HE VOMITED. 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 NESS FOR THIS PROBLEM, AND NEXT APPOINTMENT IS 01/05/17. PT STATES HE IS SUPPOSED TO BE SENT TO FOR "A HEAD SCAN TO SEE WHY I'M HAVING THEM" BUT THIS HAS NOT BEEN ARRANGED AT THIS TIME PT HAS NO IDEA WHAT ANY OF HIS MEDICATIONS ARE, BUT DENIES ANY CHANGES IN MEDICATIONS OR DOSES, AND DENIES ANY MISSED DOSES PT DENIES ANY RECENT STRESSORS PT DENIES ANY RECENT ILLNESS WHEN HE FIRST ARRIVED. MUCH LATER DURING ER VISIT , PT STATES HE HAS HAD COUGH/CONGESTION, SINUS DRAINAGE FOR THE LST 2-3 DAYS, AND FEMALE S.O. HAS BEEN SICK FOR THE LAST WEEK WITH A RESPIRATORY ILLNESS PCP: HAYDEN-ELIJAH, CORNELL BARROW NEUROLOGIST: DR. NESS Allergies and Home Medications Allergies Coded Allergies: No Known Drug Allergies (Verified , 06/11/16) Home Medications Allopurinol 100 Mg Tablet, 100 MG PO DAILY, (Reported) Cefprozil 500 Mg Tablet, 500 MG PO BID, #20 Prescribed by: FRED LUX on 12/28/16 2126 Levetiracetam 500 Mg Tablet, 1,000 MG PO BID, #0 Prescribed by: JOSE SOL on 06/12/16 1454 Lisinopril 20 Mg Tablet, 20 MG PO DAILY, (Reported) Ondansetron 4 Mg Tab.rapdis, 4 MG PO Q4H, #10 Prescribed by: FRED LUX on 12/28/162125 Topiramate 50 Mg Tablet, 50 MG PO BID, (Reported) Zonisamide 100 Mg Capsule, 400 MG PO HS, (Reported) Constitutional: no symptoms reported, No chills, No dizziness, No fever, No malaise, No weakness EENTM: nose congestion, see HPI, No blurred vision, No double vision, No ear pain, No mouth pain, No throat pain, No vision loss Respiratory: see HPI, cough, No short of breath, No wheezing Cardiovascular: no symptoms reported Gastrointestinal: see HPI, No abdominal pain, diarrhea, No loss of appetite, nausea, vomiting Genitourinary: no symptoms reported Musculoskeletal: no symptoms reported Skin: no symptoms reported Psychiatric/Neurological: See HPI, Headache, Denies Numbness, Denies Paresthesia, Denies Pre-Existing Deficit, Denies Seizure, Denies Tingling, Tremors, Denies Weakness Hematologic/Lymphatic: No Symptoms Reported Immunological/Allergic: no symptoms reported Past Zpzkqyx-Ltwtts-Ikmyxs Hx Patient Social History Alcohol Use: Denies Use Recreational Drug Use: Yes (THC) Drug of Choice: CANNIBUS Smoking Status: Never a Smoker Type Used: Cigarettes 2nd Hand Smoke Exposure: Yes Recent Foreign Travel: No Contact w/Someone Who Travel: No Recent Hopitalizations: No Immunizations Up To Date Tetanus Booster (TDap): Unknown Seasonal Allergies Seasonal Allergies: No Surgeries HX Surgeries: Yes (CARDIAC CATH 2007--NORMAL, L KNEE) Surgeries: Cardiac, Orthopedic Respiratory Hx Respiratory Disorders: No Cardiovascular Hx Cardiac Disorders: Yes Cardiac Disorders: Hypertension Neurological Hx Neurological Disorders: Yes Neurological Disorders: Headaches /Migraines, Seizure Disorder Reproductive System Hx Reproductive Disorders: No Genitourinary Hx Genitourinary Disorders: No Gastrointestinal Hx Gastrointestinal Disorders: No Musculoskeletal Hx Musculoskeletal Disorders: Yes (Chronic knee pain) Musculoskeletal Disorders: Arthritis, Gout Endocrine Hx Endocrine Disorders: Yes (PT REPORTS POSSIBLE NEW ONSET OF DM (UNSURE); OBESITY) Endocrine Disorders: Diabetes, Non-Insulin dep HEENT HX ENT Disorders: No Cancer Hx Cancer: No Psychosocial Hx Psychiatric Problems: No Integumentary HX Skin/Integumentary Disorder: No Blood Transfusions Hx Blood Disorders: No Family Medical History Family Medial History: Congenital disease SON Seizure disorder G8 BROTHER G8 SISTER SON Physical Exam Vital Signs Vital Sign - Last 12Hours 12/28/16 19:15 Temp 100.7 Pulse 99 Resp 30 B/P (MAP) 152/88 Pulse Ox 98 Capillary Refill : General Appearance: No Apparent Distress, WD/WN, Obese HEENT: PERRL/EOMI, No Pharyngeal Erythema, No Photophobia, Other (NASAL MUCOSAL EDEMA, CLEAR POST NASAL DRAINAGE. NO SINUS TENDERNESS) Neck: Full Range of Motion, Normal Inspection, Non Tender, Supple, No Carotid Bruit, No JVD Respiratory: Normal Breath Sounds, No Accessory Muscle Use, No Respiratory Distress Cardiovascular: Regular Rate, Rhythm, No Edema, No JVD, No Murmur, Normal Peripheral Pulses Gastrointestinal: Normal Bowel Sounds, No Organomegaly, No Pulsatile Mass, Non Tender, Soft Back: Normal Inspection, No CVA Tenderness, No Vertebral Tenderness Extremity: Normal Capillary Refill, Normal Inspection, Normal Range of Motion, Non Tender Neurologic/Psychiatric: Alert, Oriented x3, No Motor/Sensory Deficits, Normal Mood/Affect, 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 ) Reflexes: 2+ Bicep (R), 2+ Bicep (L), 2+ Knee (R), 2+ Knee (L) Skin: Normal Color, Warm/Dry Focused Exam Lactic Acid Level Progress/Results/Core Measures Results/Orders Lab Results Laboratory Tests Test 12/28/16 19:52 12/28/16 20:01 12/28/16 20:25 12/28/16 20:49 Range/Units White Blood Count 9.2 4.3-11.0 10^3/uL Red Blood Count 5.25 4.35-5.85 10^6/uL Hemoglobin 15.0 13.3-17.7 G/DL Hematocrit 43 40-54 % Mean Corpuscular Volume 82 80-99 FL Mean Corpuscular Hemoglobin 29 25-34 PG Mean Corpuscular Hemoglobin Concent 35 32-36 G/DL Red Cell Distribution Width 14.1 10.0-14.5 % Platelet Count 56 L 130-400 10^3/uL Mean Platelet Volume 10.3 7.4-10.4 FL Neutrophils (%) (Auto) 83 H 42-75 % Lymphocytes (%) (Auto) 10 L 12-44 % Monocytes (%) (Auto) 5 0-12 % Eosinophils (%) (Auto) 1 0-10 % Basophils (%) (Auto) 0 0-10 % Neutrophils # (Auto) 7.7 1.8-7.8 X 10^3 Lymphocytes # (Auto) 0.9 L 1.0-4.0 X 10^3 Monocytes # (Auto) 0.5 0.0-1.0 X 10^3 Eosinophils # (Auto) 0.1 0.0-0.3 10^3/uL Basophils # (Auto) 0.0 0.0-0.1 10^3/uL Sodium Level 141 135-145 MMOL/L Potassium Level 4.2 3.6-5.0 MMOL/L Chloride Level 109 H 98-107 MMOL/L Carbon Dioxide Level 20 L 21-32 MMOL/L Anion Gap 12 5-14 MMOL/L Blood Urea Nitrogen 13 7-18 MG/DL Creatinine 1.01 0.60-1.30 MG/DL Estimat Glomerular Filtration Rate > 60 BUN/Creatinine Ratio 13 Glucose Level 102 70-105 MG/DL Calcium Level 9.0 8.5-10.1 MG/DL Magnesium Level 2.3 1.8-2.4 MG/DL Total Bilirubin 0.8 0.1-1.0 MG/DL Aspartate Amino Transf (AST/SGOT) 23 5-34 U/L Alanine Aminotransferase (ALT/SGPT) 27 0-55 U/L Alkaline Phosphatase 86 40-136 U/L Total Creatine Kinase 112 30-200 U/L Creatine Kinase MB 1.5 <6.6 NG/ML Total Protein 7.7 6.4-8.2 G/DL Albumin 4.4 3.2-4.5 G/DL TSH Davis Testing 4.06 0.35-4.94 UIU/ML Serum Alcohol < 10 <10 MG/DL Prothrombin Time 13.5 12.2-14.7 SEC INR Comment 1.1 0.8-1.4 Activated Partial Thromboplast Time 28 24-35 SEC Lactic Acid Level 1.13 0.50-2.00 MMOL/L Monoscreen NEGATIVE NEGATIVE Group A Streptococcus Screen NEGATIVE NEGATIVE Urine Color YELLOW Urine Clarity CLEAR Urine pH 6.5 5-9 Urine Specific [place] 1.010 L 1.016-1.022 Urine Protein NEGATIVE NEGATIVE Urine Glucose (UA) NEGATIVE NEGATIVE Urine Ketones NEGATIVE NEGATIVE Urine Nitrite NEGATIVE NEGATIVE Urine Bilirubin NEGATIVE NEGATIVE Urine Urobilinogen 1 NORMAL MG/DL Urine Leukocyte Esterase 1+ H NEGATIVE Urine RBC (Auto) 1+ H NEGATIVE Urine RBC RARE /HPF Urine WBC 0-2 /HPF Urine Squamous Epithelial Cells 0-2 /HPF Urine Crystals NONE /LPF Urine Bacteria NONE /HPF Urine Casts NONE /LPF Urine Mucus NEGATIVE /LPF Urine Culture Indicated NO Urine Opiates Screen NEGATIVE NEGATIVE Urine Oxycodone Screen NEGATIVE NEGATIVE Urine Methadone Screen NEGATIVE NEGATIVE Urine Propoxyphene Screen NEGATIVE NEGATIVE Urine Barbiturates Screen NEGATIVE NEGATIVE Ur Tricyclic Antidepressants Screen NEGATIVE NEGATIVE Urine Phencyclidine Screen NEGATIVE NEGATIVE Urine Amphetamines Screen NEGATIVE NEGATIVE Urine Methamphetamines Screen NEGATIVE NEGATIVE Urine Benzodiazepines Screen NEGATIVE NEGATIVE Urine Cocaine Screen NEGATIVE NEGATIVE Urine Cannabinoids Screen POSITIVE H NEGATIVE Micro Results Microbiology 12/28/16 Influenza Types A,B Antigen ([facility]) - Final, Complete My Orders Orders - FRED LUX DO Saline Lock/Iv-Start (12/28/16 19:29) Monitor-Rhythm Ecg Trace Only (12/28/16 19:29) Cbc With Automated Diff (12/28/16 19:29) Comprehensive Metabolic Panel (12/28/16 19:29) Creatine Kinase (12/28/16 19:29) Creatine Kinase Mb (12/28/16 19:29) Drug Screen Stat (Urine) (12/28/16 19:29) Magnesium (12/28/16 19:29) Protime With Inr (12/28/16 19:29) Partial Thromboplastin Time (12/28/16 19:29) Thyroid Analyzer (12/28/16 19:29) Ua Culture If Indicated (12/28/16 19:29) Ct Head Wo (12/28/16 19:29) Alcohol (12/28/16 19:29) Lactic Acid Analyzer (12/28/16 19:53) Monotest (12/28/16 19:53) Rapid Strep A Screen (12/28/16 19:53) Blood Culture (12/28/16 19:53) Influenza A And B Antigens (12/28/16 19:53) Chest Pa/Lat (2 View) (12/28/16 19:53) Ceftriaxone Injection (Rocephin Injectio (12/28/16 21:30) Rx-Ondansetron Po (Rx-Zofran Po) (12/28/16 21:29) Medications Given in ED Current Medications Medications Dose Ordered Sig/[place] Route Start Time Stop Time Status Last Admin Dose Admin Ceftriaxone Sodium 1000 mg/ Sodium Chloride 50 ml @ 100 mls/hr ONCE ONCE IV 12/28/16 21:30 12/28/16 21:59 DC 12/28/16 21:43 100 MLS/HR Vital Signs/I&O Vital Sign - Last 12Hours 12/28/16 12/28/16 19:15 22:01 Temp 100.7 100.9 Pulse 99 93 Resp 30 20 B/P (MAP) 152/88 Pulse Ox 98 98 Intake and Output 12/28/16 23:59 Intake Total 50 ml Balance 50 ml Progress Note : Progress Note UNEVENTFUL ER STAY Diagnostic Imaging Comments CT HEAD--NO ACUTE PROCESS CXR--NO ACUTE PROCESS PER RADIOLOGIST REPORTS @ 2013 Reviewed: Reviewed by Me Departure Impression Impression: Primary Impression: URI (upper respiratory infection) Additional Impressions: Gastroenteritis History of seizures Disposition: HOME, SELF-CARE Condition: Improved Departure-Patient Inst. Referrals: RICARDO MELO DO (PCP/Family) Primary Care Physician Patient Instructions: Bacterial Upper Respiratory Infection, Adult (DC), Seizures, Adult (DC), Viral Gastroenteritis, Adult (DC) Add. Discharge Instructions: CLEAR LIQUIDS--WATER, BROTH, JELLO. GATORADE TOMORROW IF YOU ARE BETTER, ADD BRATS DIET TO CLEAR LIQUIDS--BANANAS, RICE, APPLESAUCE, TOAST, SALTINES CONTINUE YOUR REGULAR MEDICATIONS PRESCRIBED FOLLOW UP WITH YOUR NEUROLOGIST THIS WEEK FOR FURTHER CARE RETURN TO ER IF SYMPTOMS WORSEN Scripts Cefprozil (Cefprozil) 500 Mg Tablet 500 MG PO BID, #20 TAB Prov: FRED LUX DO 12/28/16 Ondansetron (Zofran Odt) 4 Mg Tab.rapdis 4 MG PO Q4H for Nausea/Vomiting, #10 TAB Prov: FRED LUX DO 12/28/16 FRED LUX DO Dec 28, 2016 19:33
[2016-12-28 19:58] LABS: BASOPHILS % (AUTO) 0 % (0-10); EOSINOPHILS # (AUTO) 0.1 10^3/uL (0.0-0.3); EOSINOPHILS % (AUTO) 1 % (0-10); LYMPHOCYTES # (AUTO) 0.9 X 10^3 (1.0-4.0); LYMPHOCYTES % (AUTO) 10 % (12-44); MEAN CORPUSCULAR HEMOGLOBIN 29 PG (25-34); MEAN CORPUSCULAR HGB CONC 35 G/DL (32-36); MEAN CORPUSCULAR VOLUME 82 FL (80-99); MEAN PLATELET VOLUME 10.3 FL (7.4-10.4); MONOCYTES # (AUTO) 0.5 X 10^3 (0.0-1.0); MONOCYTES % (AUTO) 5 % (0-12); NEUTROPHILS # (AUTO) 7.7 X 10^3 (1.8-7.8); NEUTROPHILS % (AUTO) 83 % (42-75); PLATELET COUNT 56 10^3/uL (130-400); RED BLOOD COUNT 5.25 10^6/uL (4.35-5.85); RED CELL DISTRIBUTION WIDTH 14.1 % (10.0-14.5); WHITE BLOOD COUNT 9.2 10^3/uL (4.3-11.0)
--- NOTE | 2016-12-28 20:09 | Diagnostic Imaging Report ---
INDICATION: Seizures, headache, fever EXAMINATION: PA and lateral views of the chest. FINDINGS: The heart size and vascularity are normal. Lungs are clear. There is no effusion. There is no acute bony abnormality. IMPRESSION: No acute abnormality is seen. There is no change from 06/11/16. Dictated by: Dictated on workstation # [id number]
--- NOTE | 2016-12-28 20:09 | Diagnostic Imaging Report ---
PROCEDURE: CT head without contrast. TECHNIQUE: Multiple contiguous axial images were obtained through the brain without the use of intravenous contrast. INDICATION: Seizure, vomiting The ventricles are normal in size, shape and position. There is no acute parenchymal hemorrhage, edema or mass. There is no extra-axial mass or hemorrhage. There is no change from 06/11/16. IMPRESSION: No acute abnormality is seen. Dictated by: Dictated on workstation # [id number]
[2016-12-28 20:19] LABS: ALANINE AMINOTRANSFERASE 27 U/L (0-55); ALBUMIN 4.4 G/DL (3.2-4.5); ALCOHOL < 10 MG/DL (<10); ANION GAP 12 MMOL/L (5-14); ASPARTATE AMINO TRANSFERASE 23 U/L (5-34); BILIRUBIN,TOTAL 0.8 MG/DL (0.1-1.0); BLOOD UREA NITROGEN 13 MG/DL (7-18); BUN/CREATININE RATIO 13; CARBON DIOXIDE 20 MMOL/L (21-32); CHLORIDE 109 MMOL/L (98-107); CREATINE KINASE 112 U/L (30-200); CREATININE SERUM 1.01 MG/DL (0.60-1.30); GFR ESTIMATED > 60; GLUCOSE 102 MG/DL (70-105); MAGNESIUM 2.3 MG/DL (1.8-2.4); POTASSIUM 4.2 MMOL/L (3.6-5.0); SODIUM 141 MMOL/L (135-145); TOTAL PROTEIN 7.7 G/DL (6.4-8.2)
[2016-12-28 20:44] LABS: INR 1.1 (0.8-1.4); PROTHROMBIN TIME PATIENT 13.5 SEC (12.2-14.7)
[2016-12-28 21:01] LABS: BILIRUBIN,URINE NEGATIVE (NEGATIVE); KETONES,URINE NEGATIVE (NEGATIVE); LEUKOCYTE ESTERASE ,URINE 1+ (NEGATIVE); NITRITE,URINE NEGATIVE (NEGATIVE); PH,URINE 6.5 (5-9); PROTEIN,URINE NEGATIVE (NEGATIVE); UROBILINOGEN,URINE 1 MG/DL (NORMAL)
[2016-12-28 21:07] LABS: SQUAMOUS EPITHELIAL CELL,UR 0-2 /HPF; WBC,URINE 0-2 /HPF
[2016-12-28] MEDS ORDERED: ONDA4TAB8 PO (21:26)
[2016-12-28] MEDS ORDERED: CEFP500T4 PO (21:26)
[2016-12-28] MEDS ORDERED: RX-ONDANSETRON 4 MG ODT (ZOFRAN) PPK #4 PO STA (21:29)
[2016-12-28] MEDS ORDERED: cefTRIAXone INJECTION 1,000 MG in NS (IVPB) 50 ML IV ONE (21:30)
[2016-12-28 22:01] VITALS: BP 131/80
== END 2016-12-28 22:01 | disposition home or self-care (01) ==
LOC: EDUNIT# 19:07 → ER 19:09
DX: N39.0 Urinary tract infection, site not specified (principal); J06.9 Acute upper respiratory infection, unspecified; K52.9 Noninfective gastroenteritis and colitis, unspecified; G40.909 Epilepsy, unspecified, not intractable, without status epilepticus; Z79.899 Other long term (current) drug therapy
CPT/HCPCS: 36415; 70450; 71020; 80053; 80306; 80320; 81000; 82550; 82553; 83605; 83735; 84443; 85025; 85610; 85730; 86308; 87040; 87430; 87804; 93041; 96374

== ENCOUNTER 2017-02-07 00:22 | Emergency (ER) | payer SELFPAY ==
[~2017-02-07] VITALS: Ht 182.9 cm; Wt 122.5 kg
[~2017-02-07 00:22] MED LIST changes: +CEFP500T4 PO; +ONDA4TAB8 PO
[2017-02-07] MEDS ORDERED: LEVETIRACETAM INJECTION 1,000 MG in NS (IVPB) 100 ML IV ONE (00:45)
[2017-02-07] MEDS ORDERED: NS 1000 ML IV BAG IV ONE (00:45)
--- NOTE | 2017-02-07 00:49 | ED Neurological Problem ---
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 PER EMS, FAMILY REPORTS PT HAD A 20 MIN SEIZURE. PT REPORTS HE IS OUT OF HIS KEPPRA, LAST DOSE WAS TUESDAY AM. PT REPORTS HE TAKES 3000MG/DAY. ALSO C/O ANDRÉS PAIN ONSET AFTER SEIZURE. NO OTHER C/O VOICED Nursing Sepsis Screen: No Definite Risk Source: patient Exam Limitations: no limitations History of Present Illness Time seen by provider: 00:47 Initial Comments Patient had witnessed tonic-clonic seizure at home lasting 20 minutes. Family called 911. Patient's last dose of Keppra was around 24 hours ago. He states he is out. He is drowsy but his questions on arrival. Allergies and Home Medications Allergies Coded Allergies: No Known Drug Allergies (Verified , 06/11/16) Home Medications Allopurinol 100 Mg Tablet, 100 MG PO DAILY, (Reported) Levetiracetam 500 Mg Tablet, 1,000 MG PO BID, #0 Prescribed by: JOSE SOL on 06/12/16 1454 Levetiracetam 750 Mg Tablet, 2 TAB PO BID for 30 Days, Ref 1 Prescribed by: LAYTON SAWANT on 02/07/17 0112 Lisinopril 20 Mg Tablet, 20 MG PO DAILY, (Reported) Ondansetron 4 Mg Tab.rapdis, 4 MG PO Q4H, #10 Prescribed by: FRED LUX on 12/28/16 2126 Topiramate 50 Mg Tablet, 50 MG PO BID, (Reported) Zonisamide 100 Mg Capsule, 400 MG PO HS, (Reported) Constitutional: no symptoms reported Respiratory: no symptoms reported Cardiovascular: no symptoms reported Psychiatric/Neurological: Tonic Clonic Seizures Hematologic/Lymphatic: No Symptoms Reported All Other Systems Reviewed Negative Unless Noted: Yes Past Hkwgzna-Vqpfuv-Vipcmy Hx Patient Social History Alcohol Use: Denies Use Recreational Drug Use: Yes Drug of Choice: MARIJUANA Smoking Status: Current Everyday Smoker Type Used: Cigarettes 2nd Hand Smoke Exposure: Yes Recent Foreign Travel: No Contact w/Someone Who Travel: No Recent Infectious Disease Expo: No Recent Hopitalizations: No Immunizations Up To Date Tetanus Booster (TDap): Unknown Seasonal Allergies Seasonal Allergies: No Surgeries HX Surgeries: Yes (CARDIAC CATH 2007--NORMAL, L KNEE) Surgeries: Cardiac, Orthopedic Respiratory Hx Respiratory Disorders: No Cardiovascular Hx Cardiac Disorders: Yes Cardiac Disorders: Hypertension Neurological Hx Neurological Disorders: Yes Neurological Disorders: Headaches /Migraines, Seizure Disorder Reproductive System Hx Reproductive Disorders: No Genitourinary Hx Genitourinary Disorders: No Gastrointestinal Hx Gastrointestinal Disorders: No Musculoskeletal Hx Musculoskeletal Disorders: Yes (Chronic knee pain) Musculoskeletal Disorders: Arthritis, Gout Endocrine Hx Endocrine Disorders: Yes (PT REPORTS POSSIBLE NEW ONSET OF DM (UNSURE); OBESITY) Endocrine Disorders: Diabetes, Non-Insulin dep HEENT HX ENT Disorders: No Cancer Hx Cancer: No Psychosocial Hx Psychiatric Problems: No Integumentary HX Skin/Integumentary Disorder: No Blood Transfusions Hx Blood Disorders: No Reviewed Nursing Assessment Reviewed/Agree w Nursing PMH: Yes Family Medical History Family Medial History: Congenital disease SON Seizure disorder G8 BROTHER G8 SISTER SON Physical Exam Vital Signs Vital Sign - Last 12Hours 02/07/17 00:23 Temp 100.0 Pulse 106 Resp 20 B/P (MAP) 134/62 Pulse Ox 92 O2 Delivery Room Air Capillary Refill : Less Than 3 Seconds General Appearance: WD/WN, no apparent distress HEENT: pharynx normal Neck: supple Respiratory: lungs clear Cardiovascular: regular rate, rhythm, no edema Gastrointestinal: non tender, soft Extremities: normal inspection 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, no motor/sensory deficits, normal mood/affect Crainal Nerves: normal hearing, normal speech Motor/Sensory: no motor deficit Skin: normal color Progress/Results/Core Measures Results/Orders Lab Results Laboratory Tests Test 02/07/17 00:43 Range/Units White Blood Count 9.9 4.3-11.0 10^3/uL Red Blood Count 4.75 4.35-5.85 10^6/uL Hemoglobin 13.7 13.3-17.7 G/DL Hematocrit 39 L 40-54 % Mean Corpuscular Volume 83 80-99 FL Mean Corpuscular Hemoglobin 29 25-34 PG Mean Corpuscular Hemoglobin Concent 35 32-36 G/DL Red Cell Distribution Width 13.2 10.0-14.5 % Platelet Count 298 130-400 10^3/uL Mean Platelet Volume 8.9 7.4-10.4 FL Neutrophils (%) (Auto) 69 42-75 % Lymphocytes (%) (Auto) 21 12-44 % Monocytes (%) (Auto) 8 0-12 % Eosinophils (%) (Auto) 2 0-10 % Basophils (%) (Auto) 0 0-10 % Neutrophils # (Auto) 6.8 1.8-7.8 X 10^3 Lymphocytes # (Auto) 2.1 1.0-4.0 X 10^3 Monocytes # (Auto) 0.8 0.0-1.0 X 10^3 Eosinophils # (Auto) 0.2 0.0-0.3 10^3/uL Basophils # (Auto) 0.0 0.0-0.1 10^3/uL Sodium Level 137 135-145 MMOL/L Potassium Level 3.8 3.6-5.0 MMOL/L Chloride Level 105 98-107 MMOL/L Carbon Dioxide Level 20 L 21-32 MMOL/L Anion Gap 12 5-14 MMOL/L Blood Urea Nitrogen 13 7-18 MG/DL Creatinine 1.01 0.60-1.30 MG/DL Estimat Glomerular Filtration Rate > 60 BUN/Creatinine Ratio 13 Glucose Level 123 H 70-105 MG/DL Calcium Level 8.9 8.5-10.1 MG/DL Magnesium Level 2.2 1.8-2.4 MG/DL Total Bilirubin 0.4 0.1-1.0 MG/DL Aspartate Amino Transf (AST/SGOT) 23 5-34 U/L Alanine Aminotransferase (ALT/SGPT) 27 0-55 U/L Alkaline Phosphatase 77 40-136 U/L Total Protein 7.3 6.4-8.2 G/DL Albumin 4.2 3.2-4.5 G/DL My Orders Orders - LAYTON SAWANT MD Cbc With Automated Diff (02/07/17 00:39) Comprehensive Metabolic Panel (02/07/17 00:39) Magnesium (02/07/17 00:39) Ns Iv 1000 Ml (Sodium Chloride 0.9%) (02/07/17 00:45) Levetiracetam Injection (Keppra Injectio (02/07/17 00:45) Medications Given in ED Current Medications Medications Dose Ordered Sig/[place] Route Start Time Stop Time Status Last Admin Dose Admin Levetiracetam 1000 mg/Sodium Chloride 110 ml @ 0 mls/hr ONCE ONCE IV 02/07/17 00:45 02/07/17 00:47 DC 02/07/17 00:52 1,000 MLS/HR Sodium Chloride 1,000 ml ONCE ONCE IV 02/07/17 00:45 02/07/17 00:47 DC 02/07/17 00:52 1,000 ML Vital Signs/I&O Vital Sign - Last 12Hours 02/07/17 00:23 Temp 100.0 Pulse 106 Resp 20 B/P (MAP) 134/62 Pulse Ox 92 O2 Delivery Room Air Blood Pressure Mean: 86 Progress Note : Time: 01:24 Progress Note No seizure activity while in the ER. Patient said he didn't have money for his prescriptions. His father gave him money for his medicine. Departure Impression Impression: Primary Impression: Seizure Disposition: HOME, SELF-CARE Condition: Stable Departure-Patient Inst. Decision time for Depature: 01:25 Referrals: RICARDO MELO DO (PCP/Family) Primary Care Physician Patient Instructions: Seizures, Adult (DC) Scripts Levetiracetam (Keppra) 750 Mg Tablet 2 TAB PO BID for 30 Days, TAB 1 Refill Prov: LAYTON SAWANT MD 02/07/17 LAYTON SAWANT MD February 07, 2017 00:49
[2017-02-07 01:04] LABS: BASOPHILS % (AUTO) 0 % (0-10); EOSINOPHILS # (AUTO) 0.2 10^3/uL (0.0-0.3); EOSINOPHILS % (AUTO) 2 % (0-10); LYMPHOCYTES # (AUTO) 2.1 X 10^3 (1.0-4.0); LYMPHOCYTES % (AUTO) 21 % (12-44); MEAN CORPUSCULAR HEMOGLOBIN 29 PG (25-34); MEAN CORPUSCULAR HGB CONC 35 G/DL (32-36); MEAN CORPUSCULAR VOLUME 83 FL (80-99); MEAN PLATELET VOLUME 8.9 FL (7.4-10.4); MONOCYTES # (AUTO) 0.8 X 10^3 (0.0-1.0); MONOCYTES % (AUTO) 8 % (0-12); NEUTROPHILS # (AUTO) 6.8 X 10^3 (1.8-7.8); NEUTROPHILS % (AUTO) 69 % (42-75); PLATELET COUNT 298 10^3/uL (130-400); RED BLOOD COUNT 4.75 10^6/uL (4.35-5.85); RED CELL DISTRIBUTION WIDTH 13.2 % (10.0-14.5); WHITE BLOOD COUNT 9.9 10^3/uL (4.3-11.0)
[2017-02-07] MEDS ORDERED: LEVE750T19 PO (01:12)
[2017-02-07 01:21] LABS: ALANINE AMINOTRANSFERASE 27 U/L (0-55); ALBUMIN 4.2 G/DL (3.2-4.5); ANION GAP 12 MMOL/L (5-14); ASPARTATE AMINO TRANSFERASE 23 U/L (5-34); BILIRUBIN,TOTAL 0.4 MG/DL (0.1-1.0); BLOOD UREA NITROGEN 13 MG/DL (7-18); BUN/CREATININE RATIO 13; CALCIUM 8.9 MG/DL (8.5-10.1); CARBON DIOXIDE 20 MMOL/L (21-32); CHLORIDE 105 MMOL/L (98-107); CREATININE SERUM 1.01 MG/DL (0.60-1.30); GFR ESTIMATED > 60; GLUCOSE 123 MG/DL (70-105); MAGNESIUM 2.2 MG/DL (1.8-2.4); POTASSIUM 3.8 MMOL/L (3.6-5.0); SODIUM 137 MMOL/L (135-145); TOTAL PROTEIN 7.3 G/DL (6.4-8.2)
[2017-02-07 01:25] VITALS: BP 127/78
== END 2017-02-07 01:25 | disposition home or self-care (01) ==
LOC: EDUNIT# 00:22 → ER 00:25
DX: G40.909 Epilepsy, unspecified, not intractable, without status epilepticus (principal); I10 Essential (primary) hypertension; E11.9 Type 2 diabetes mellitus without complications; F17.210 Nicotine dependence, cigarettes, uncomplicated; Z79.899 Other long term (current) drug therapy; Z91.14 Patient's other noncompliance with medication regimen
CPT/HCPCS: 36415; 80053; 83735; 85025

== ENCOUNTER 2017-05-21 14:51 | Emergency (ER) | payer SELFPAY ==
[~2017-05-21] VITALS: Ht 182.9 cm; Wt 127.0 kg
[~2017-05-21 14:51] MED LIST changes: +LEVE750T19 PO
--- OUTSIDE RECORDS SUMMARY | 2017-05-21 14:59 | XMS REPORT | Clinical Summary ---
Author Author [facility] Organization [facility] Address Unknown Phone Unavailable Care Team Providers Care Aircraft Part Assembler Name Role Phone PCP Unavailable Source Comments Some departments are not documenting in the electronic medical record. If you do not see the information that you expected, contact Release of Information in the Health Information Management department at [phone] for further assistance in locating additional records.[facility] Allergies Not on File Current Medications Not on file Active Problems Not on file Encounters Date Type Specialty Care Team Description 03/25/2017 Documentation Marvin Dick 02/21/2017 Documentation Marvin Dick from Last 3 Months Social History Tobacco Use Types Packs/Day Years Used Date Never Assessed Sex Assigned at Date Recorded Not on file Last Filed Vital Signs Not on file Plan of Treatment Health Maintenance Due Date Last Done Comments PHYSICAL (COMPREHENSIVE) 1978 EXAM PERTUSSIS VACCINE 1982 TETANUS VACCINE 1988 INFLUENZA VACCINE 05/13/2017 Results Not on filefrom Last 3 Months
--- OUTSIDE RECORDS SUMMARY | 2017-05-21 14:59 | XMS REPORT | Encounter Summary ---
Author Author [facility] Organization [facility] Address Unknown Phone Unavailable Care Team Providers Care Bathing Suit Maker Name Role Phone PCP Unavailable Encounter Details Date Type Department Care Team Description 03/25/2017 Documentation [facility] Marvin Dick [address] [place] [address] Social History Tobacco Use Types Packs/Day Years Used Date Never Assessed Sex Assigned at Date Recorded Not on file as of this encounter Progress Notes * Marvin Dick - 03/25/2017 12:46 PM CDT Patient has been approved for medication asssistance for Keppra 1000mg tid. Pt is enrolled in [facility] until 03/23/2018. Marvin Dick Medication Mechanical Design Technician [phone] in this encounter Plan of Treatment Not on fileas of this encounter Visit Diagnoses Not on filein this encounter
--- OUTSIDE RECORDS SUMMARY | 2017-05-21 14:59 | XMS REPORT | Encounter Summary ---
Author Author [facility] Organization [facility] Address Unknown Phone Unavailable Care Team Providers Care First Officer And Flight Instructor Name Role Phone PCP Unavailable Encounter Details Date Type Department Care Team Description 02/21/2017 Documentation [facility] Marvin Dick [address] [place] [address] Social History Tobacco Use Types Packs/Day Years Used Date Never Assessed Sex Assigned at Date Recorded Not on file as of this encounter Progress Notes * Marvin Dick - 02/21/2017 2:47 PM CDT A Medication Assistance Packet was mailed out to this patient. Once completed and returned by the patient, assistance paperwork will be done and sent to the physician prescribing the medications. Marvin Dick Medication Student Life Dean [phone] in this encounter Plan of Treatment Not on fileas of this encounter Visit Diagnoses Not on filein this encounter
--- OUTSIDE RECORDS SUMMARY | 2017-05-21 15:00 | XMS REPORT ---
Author Author [facility] Organization [facility] Address [address] [place] [address] Care Team Providers Care Dog Day Care Attendant Name Role Phone MO CROWELL Unavailable PROBLEMS Type Condition ICD9-CM Code [id number] Code Onset Dates Condition Status SNOMED Code Problem History of acute gouty arthritis Z87.39 Active 629594200 Problem Right medial knee pain M25.561 Active 25546158 Problem Gastroesophageal reflux disease without esophagitis K21.9 Active 089951252 Problem Acute pain of right shoulder M25.511 Active 30366661 Problem Right elbow pain M25.521 Active 78659032 Problem Essential hypertension I10 Active 86878333 Problem Seizure R56.9 Active 11764999 Problem Onychomycosis B35.1 Active 536311218 ALLERGIES Substance Reaction Event Type Date Status N.K.D.A. Unknown Non Drug Allergy Sep, Unknown SOCIAL HISTORY No smoking Hx information available PLAN OF CARE Activity Details Follow Up prn Reason: VITAL SIGNS Height 72 in 2016-09-28 Weight 293.6 lbs 2016-09-28 Temperature 97.6 degrees Fahrenheit 2016-09-28 Heart Rate 76 bpm 2016-09-28 Respiratory Rate 20 2016-09-28 BMI 39.81 kg/m2 2016-09-28 Blood pressure systolic 130 mmHg 2016-09-28 Blood pressure diastolic 78 mmHg 2016-09-28 MEDICATIONS Medication Instructions Dosage Frequency Start Date End Date Duration Status Zyrtec Allergy 10 MG Orally Once a day 1 tablet 24h Sep, Oct, 30 day(s) Active Fluticasone Propionate 50 MCG/ACT Nasally Twice a day 1 spray in each nostril 12h Sep, 30 day(s) Active Keppra 1000 MG Orally 2 times a day 1 tablet 12h 12 May, 2016 Active Lisinopril 10 MG Orally Once a day 1 tablet 24h January, 30 day(s) Active Naproxen Active Allopurinol 100 MG Orally Once a day 1 tablet 24h 11 May, 2015 30 day(s ) Active RESULTS No Results PROCEDURES Procedure Date Ordered Related Diagnosis Body Site DEPO MEDROL 40 MG/ML Sep 28, 2016 THER/PROPH/DIAG INJ, SC/IM Sep 28, 2016 Office Visit, Est Pt., Level 3 Sep 28, 2016 DEXAMETHASONE 4MG/ML (PER 1 MG) Sep 28, 2016 IMMUNIZATIONS Vaccine Route Administration Date Status DEXAMETHASONE 4MG/ML (PER 1 MG) IM Intramuscular Sep 28, 2016 Administered DEPO MEDROL 40 MG/ML IM Intramuscular Sep 28, 2016 Administered
[2017-05-21] MEDS ORDERED: LISI10TA2 PO (15:48)
[2017-05-21] MEDS ORDERED: LEVE100015 PO (15:48)
[2017-05-21] MEDS ORDERED: IBUP-1780 PO (15:48)
[2017-05-21 16:04] LABS: BILIRUBIN,URINE NEGATIVE (NEGATIVE); KETONES,URINE NEGATIVE (NEGATIVE); LEUKOCYTE ESTERASE ,URINE 1+ (NEGATIVE); NITRITE,URINE NEGATIVE (NEGATIVE); PH,URINE 5 (5-9); PROTEIN,URINE NEGATIVE (NEGATIVE); UROBILINOGEN,URINE NORMAL (NORMAL)
[2017-05-21 16:12] LABS: SQUAMOUS EPITHELIAL CELL,UR RARE /HPF; WBC,URINE RARE /HPF
[2017-05-21] MEDS ORDERED: CYCL10TA9 PO (17:07)
[2017-05-21] MEDS ORDERED: VALA10004 PO (17:07)
[2017-05-21] MEDS ORDERED: CIPR-225 PO (17:07)
[2017-05-21] MEDS ORDERED: NAPR500T3 PO (17:07)
[2017-05-21] MEDS ORDERED: ACYC30OI TP (17:07)
[2017-05-21] MEDS ORDERED: AZITHROMYCIN 250 MG TAB (ZITHROMAX) PO STA (17:08)
--- NOTE | 2017-05-21 17:08 | ED General ---
General Chief Complaint: Rect Problems Stated Complaint: BACK PAIN,ANAL BLEEDING Nursing Triage Note: PT REPORTS RIGHT SIDED BACK PAIN X 1 WEEK, RECTAL BLEEDING AND BLOOD IN URINE STARTING THIS AM. Nursing Sepsis Screen: No Definite Risk Allergies and Home Medications Allergies Coded Allergies: No Known Drug Allergies (Verified , 06/11/16) Home Medications Allopurinol 100 Mg Tablet, 100 MG PO DAILY, (Reported) Ibuprofen 800 Mg Tablet, 800 MG PO HS PRN for PAIN, (Reported) Levetiracetam 1,000 Mg Tablet, 1,000 MG PO TID, (Reported) Lisinopril 10 Mg Tablet, 10 MG PO DAILY, (Reported) Past Nzwycdd-Sjnzwl-Piwtqd Hx Patient Social History Alcohol Use: Denies Use Recreational Drug Use: Yes Drug of Choice: MARIJUANA Smoking Status: Never a Smoker Type Used: Cigarettes 2nd Hand Smoke Exposure: Yes Recent Foreign Travel: No Contact w/Someone Who Travel: No Recent Infectious Disease Expo: No Recent Hopitalizations: No Immunizations Up To Date Tetanus Booster (TDap): Unknown Seasonal Allergies Seasonal Allergies: No Surgeries History of Surgeries: Yes (CARDIAC CATH 2007--NORMAL, L KNEE) Surgeries: Cardiac, Orthopedic Respiratory History of Respiratory Disorde: No Cardiovascular History of Cardiac Disorders: Yes Cardiac Disorders: Hypertension Neurological History of Neurological Disord: Yes Neurological Disorders: Headaches /Migraines, Seizure Disorder Reproductive System Hx Reproductive Disorders: No Sexually Transmitted Disease: No Genitourinary History of Genitourinary Disor: No Gastrointestinal History of Gastrointestinal Di: No Musculoskeletal History of Musculoskeletal Dis: Yes (Chronic knee pain) Musculoskeletal Disorders: Arthritis, Gout Endocrine History of Endocrine Disorders: No Endocrine Disorders: Diabetes, Non-Insulin dep Are Your Blood Sugars Over 250: No HEENT History of HEENT Disorders: No Cancer History of Cancer: No Psychosocial History of Psychiatric Problem: No Integumentary History of Skin or Integumenta: No Blood Transfusions History of Blood Disorders: No Family Medical History Family Medial History: Congenital disease SON Seizure disorder G8 BROTHER G8 SISTER SON Physical Exam Vital Signs Vital Sign - Last 12Hours 05/21/17 15:36 Temp 98.1 Pulse 81 Resp 20 B/P (MAP) 148/84 Pulse Ox 98 O2 Delivery Room Air Capillary Refill : Less Than 3 Seconds Progress/Results/Core Measures Results/Orders Lab Results Laboratory Tests Test 05/21/17 15:50 Range/Units Urine Color YELLOW Urine Clarity SLIGHTLY CLOUDY Urine pH 5 5-9 Urine Specific [place] 1.025 H 1.016-1.022 Urine Protein NEGATIVE NEGATIVE Urine Glucose (UA) NEGATIVE NEGATIVE Urine Ketones NEGATIVE NEGATIVE Urine Nitrite NEGATIVE NEGATIVE Urine Bilirubin NEGATIVE NEGATIVE Urine Urobilinogen NORMAL NORMAL MG/DL Urine Leukocyte Esterase 1+ H NEGATIVE Urine RBC (Auto) 1+ H NEGATIVE Urine RBC NONE /HPF Urine WBC RARE /HPF Urine Squamous Epithelial Cells RARE /HPF Urine Crystals NONE /LPF Urine Bacteria NEGATIVE /HPF Urine Casts NONE /LPF Urine Mucus NEGATIVE /LPF Urine Culture Indicated NO My Orders Orders - FRED LUX DO Ua Culture If Indicated (05/21/17 15:54) Herpes Simplex Culture (05/21/17 17:01) Neisseria Gonorrhea Dna (05/21/17 17:01) Chlam Dna Probe (05/21/17 17:01) Vital Signs/I&O Vital Sign - Last 12Hours 05/21/17 15:36 Temp 98.1 Pulse 81 Resp 20 B/P (MAP) 148/84 Pulse Ox 98 O2 Delivery Room Air Blood Pressure Mean: 105 Departure Impression Impression: Primary Impression: Genital lesion, male Additional Impressions: Rectal bleeding Hemorrhoids Right low back pain Disposition: HOME, SELF-CARE Condition: Stable Departure-Patient Inst. Referrals: RICARDO MELO DO (PCP/Family) Primary Care Physician Patient Instructions: Exercise Band Exercises for the Back and Hips, Hemorrhoids (DC), Herpes Culture, Screening for Sexually Transmitted Infections Add. Discharge Instructions: FOLLOW UP WITH [facility] THIS WEEK FOR FURTHER CARE All discharge instructions reviewed with patient and/or family. Voiced understanding. Scripts Naproxen (Naproxen) 500 Mg Tablet 500 MG PO BID, #20 TAB Prov: FRED LUX DO 05/21/17 Cyclobenzaprine HCl (Cyclobenzaprine HCl) 10 Mg Tablet 10 MG PO Q8H, #15 TAB Prov: FRED LUX DO 05/21/17 Valacyclovir HCl (Valtrex) 1,000 Mg Tablet 1000 MG PO TID, #30 TAB Prov: FRED LUX DO 05/21/17 Ciprofloxacin HCl (Cipro) 500 Mg Tablet 500 MG PO BID, #20 TAB Prov: FRED LUX DO 05/21/17 Acyclovir (Zovirax) 30 Gm Oint 30 GM TP Q4H, #1 TUBE Prov: FRED LUX DO 05/21/17 FRED LUX DO May 21, 2017 17:07
[2017-05-21] MEDS ORDERED: LIDOCAINE 1% INJ 20 ML (XYLOCAINE) VIAL INJ ONE (17:15)
[2017-05-21] MEDS ORDERED: cefTRIAXone 1 GM (ROCEPHIN) VIAL IM ONE (17:15)
[2017-05-21 18:00] VITALS: BP 142/80
== END 2017-05-21 18:00 | disposition home or self-care (01) ==
LOC: EDUNIT# 14:51 → ER 14:53
DX: N50.89 Other specified disorders of the male genital organs (principal); K64.9 Unspecified hemorrhoids; M54.5 Low back pain; I10 Essential (primary) hypertension; G43.909 Migraine, unspecified, not intractable, without status migrainosus; G40.909 Epilepsy, unspecified, not intractable, without status epilepticus; M19.90 Unspecified osteoarthritis, unspecified site; M10.9 Gout, unspecified; E11.9 Type 2 diabetes mellitus without complications; F12.10 Cannabis abuse, uncomplicated; Z77.22 Contact with and (suspected) exposure to environmental tobacco smoke (acute) (chronic)
CPT/HCPCS: 36415; 81000; 87254; 87491; 87591; 99284

== ENCOUNTER → 2020-04-07 | Outpatient (CLI) | payer MEDICARE, OTHER ==
[~2020-04-07] MED LIST changes: +ACYC30OI TP; +CIPR-225 PO; +CYCL10TA9 PO; +IBUP-1780 PO; +LEVE100015 PO; +LISI10TA2 PO; +NAPR-915 PO; +ZONI100C29 PO; -ZONI100C3 PO
--- NOTE | 2020-04-07 17:40 | Diagnostic Imaging Report ---
PROCEDURE: MRI lumbar spine. TECHNIQUE: Multiplanar, multisequence MRI of the lumbar spine was performed without contrast. INDICATION: Low back pain with bilateral leg pain. COMPARISON: None. FINDINGS: Alignment of the lumbar spine appears normal. There is decreased T1-weighted signal within the bone marrow. There is mild disc height loss at L2-L3, L3-L4, and L4-L5. Vertebral body heights are generally preserved. Mild endplate irregularity at the superior endplate of L4 appears to be degenerative. The conus terminates in appropriate position. No acute fracture is seen. Soft tissues about the lumbar spine demonstrate no acute abnormality. T12-L1: No significant disc bulge. No spinal canal or foraminal stenosis. L1-L2: No significant disc bulge. No spinal canal or foraminal stenosis. L2-L3: Diffuse disc bulge with posterior annular fissure. Mild spinal canal narrowing. Facet arthropathy. There is mild right foraminal narrowing. L3-L4: Diffuse disc bulge with facet arthropathy. No spinal canal stenosis. Mild right foraminal narrowing. No left foraminal stenosis. L4-L5: Diffuse disc bulge. No spinal canal stenosis. Mild right foraminal narrowing. L5-S1: Mild disc bulge with facet arthropathy. No spinal canal stenosis. Moderate bilateral foraminal stenosis. IMPRESSION: 1. Mild degenerative changes in the lumbar spine with mild spinal canal narrowing at L2-L3 and moderate bilateral foraminal stenosis at L5-S1. 2. Diffuse T1 hypointensity of the bone marrow. This is commonly due to nonspecific hyperplastic marrow, although infiltrative processes are not excluded. Dictated by: Dictated on workstation # [id number]
== END ==
LOC: RAD 15:27
PROVIDERS: ATTEND Internal Medicine
DX: M47.816 Spondylosis without myelopathy or radiculopathy, lumbar region (principal); M48.07 Spinal stenosis, lumbosacral region; M54.16 Radiculopathy, lumbar region
CPT/HCPCS: 72148

== ENCOUNTER → 2020-07-21 | Outpatient (CLI) | payer MEDICARE | LOC: CARD 11:00 | PROVIDERS: ATTEND Internal Medicine Cardiovascular Disease | DX: R07.9 Chest pain, unspecified (principal); I10 Essential (primary) hypertension; I73.9 Peripheral vascular disease, unspecified; E78.5 Hyperlipidemia, unspecified | CPT/HCPCS: 93306 ==

== ENCOUNTER → 2020-08-04 | Outpatient (CLI) | payer MEDICARE ==
[~2020-08-04] VITALS: Ht 182 cm; Wt 127.0 kg
[~2020-08-04] MED LIST changes: +CATHETER FLUSH 10 ML SYR IV PRN; +REGADENOSON 0.4 MG/5 ML SYR (LEXISCAN) IV ONE
[2020-08-04 08:58] VITALS: BP 127/80
--- NOTE | 2020-08-05 08:54 | Cardiology Stress Test Report ---
Stress Test Report Date of Procedure/Referring: Date of Procedure: Aug 04, 2020 PCP Reg Fowler MD Admitting Physician [place] Indications: Chest pain Baseline Blood Pressure: Blood Pressure Systolic: 127 Blood Pressure Diastolic: 80 Vital Signs Date Time Temp Pulse Resp B/P (MAP) Pulse Ox O2 Delivery O2 Flow Rate FiO2 08/04/20 08:58 73 18 127/80 (96) 98 Room Air Baseline Vital Signs Vital Signs Date Time Temp Pulse Resp B/P (MAP) Pulse Ox O2 Delivery O2 Flow Rate FiO2 08/04/20 08:58 73 18 127/80 (96) 98 Room Air Baseline EKG: Baseline EKG: normal sinus rhythm Summary: After explaining the procedure and details to the patient, he signed the consent and was brought to the stress nuclear laboratory. Patient exercised on standard Killian protocol, EKG, heart rate and blood pressure were monitored continuously, resting and stress doses of radio tracer were injected, imaging was acquired and reviewed in the short axis, horizontal long axis and vertical long axis views Patient was able to exercise for a total of 8:21 minutes on Killian protocol, METs 9 Maximum heart rate 137 Maximum blood pressure 190/106 Stress EKG, Minimal nondiagnostic changes Recovery EKG, Return to baseline TID: 1.08 SSS: 0 SDS: 0 EF: 52 Conclusion: 1. Good exercise tolerance for 8 minutes and 21 seconds on standard Killian protocol achieving only 80 percent of maximum expected heart rate 2. Minimal nondiagnostic EKG changes with exercise returned to baseline during recovery 3. Hypertensive response to exercise returned to baseline during recovery 4. Submaximal stress test with no significant ischemia or infarction on SPECT images 5. Normal left ventricular size, EF 52 percent REG FOWLER MD Aug 05, 2020 08:54
== END ==
LOC: CARD 08:15
PROVIDERS: ATTEND Internal Medicine Cardiovascular Disease
DX: R07.9 Chest pain, unspecified (principal); I73.9 Peripheral vascular disease, unspecified; I10 Essential (primary) hypertension; E78.5 Hyperlipidemia, unspecified
CPT/HCPCS: 78452; 93017; A9502

== ENCOUNTER → 2021-05-19 | Outpatient (CLI) | payer MEDICARE ==
[~2021-05-19] MED LIST changes: -CATHETER FLUSH 10 ML SYR IV PRN; -LISI-552 PO; -LISI10TA2 PO; +LISI10TA25 PO; +LISI20TA26 PO; -REGADENOSON 0.4 MG/5 ML SYR (LEXISCAN) IV ONE
--- NOTE | 2021-05-19 13:36 | Diagnostic Imaging Report ---
INDICATION: Prostate cancer. TECHNIQUE: Multiple contiguous axial images were obtained through the abdomen and pelvis without the use of intravenous contrast. Auto Exposure Controls were utilized during the CT exam to meet ALARA standards for radiation dose reduction. There is no prior study for comparison. FINDINGS: The visualized portions of the lung bases are clear. There were no pleural fluid collections. There is no free intraperitoneal air. The liver shows no discrete lesion without contrast. There are multiple gallstones in the gallbladder. The spleen, adrenals, and pancreas appear normal. The kidneys bilaterally are unremarkable. There is no retroperitoneal mass or adenopathy. There is no ascites or abnormal fluid collection. Visualized bowel loops appear unremarkable. Prostate gland is mildly prominent. Bony structures showed degenerative findings of lumbar spine but no definite sclerotic bony lesion. IMPRESSION: No evidence of metastatic disease in the abdomen or pelvis. There is cholelithiasis. There is no other significant finding. Dictated by: Dictated on workstation # [id number]
--- NOTE | 2021-05-19 15:58 | Diagnostic Imaging Report ---
INDICATION: Prostate carcinoma. TECHNIQUE: Patient was administered 27.0 mCi technetium-99m MDP intravenously, and whole body imaging was performed after a three-hour delay. COMPARISON: No prior bone scans are available for comparison. FINDINGS: There is normal uptake of activity by the axial and appendicular skeleton. There is uptake by both kidneys with excretion into the urinary bladder. Mild degenerative uptake is seen within the bilateral shoulders, knees, and feet. No suspicious foci are identified to suggest osseous metastatic disease. IMPRESSION: No scintigraphic evidence of osseous metastatic disease. Dictated by: Dictated on workstation # [id number]
== END ==
LOC: CARD 10:53
PROVIDERS: ATTEND Urology
DX: K80.20 Calculus of gallbladder without cholecystitis without obstruction (principal); Z85.46 Personal history of malignant neoplasm of prostate
CPT/HCPCS: 74176; 78306; A9503

== ENCOUNTER 2021-06-15 08:35 | Outpatient (RCR) | payer MEDICARE ==
[~2021-06-15 08:35] MED LIST changes: +CYCL10TA25 PO; -CYCL10TA9 PO
== END 2021-09-11 | disposition home or self-care (01) ==
LOC: ONC 08:35
PROVIDERS: ATTEND Radiology Radiation Oncology
DX: C61 Malignant neoplasm of prostate (principal); I10 Essential (primary) hypertension; E78.00 Pure hypercholesterolemia, unspecified
CPT/HCPCS: 99204

== ENCOUNTER 2021-09-24 10:58 | Outpatient (RCR) | payer MEDICARE | END 2021-10-12 | disposition home or self-care (01) | LOC: ONC 10:58 | PROVIDERS: ATTEND Radiology Radiation Oncology | DX: C61 Malignant neoplasm of prostate (principal); I10 Essential (primary) hypertension; E78.00 Pure hypercholesterolemia, unspecified | CPT/HCPCS: 76873 ==

== ENCOUNTER 2021-11-17 05:32 | Outpatient (CLI) | payer MEDICARE ==
[~2021-11-17] VITALS: Ht 182.9 cm; Wt 130.4 kg
[2021-11-17] MEDS ORDERED: ESCI5TAB16 PO (13:41)
== END 2021-11-17 13:59 | disposition home or self-care (01) ==
LOC: PREOP 05:32
PROVIDERS: ATTEND Urology
DX: Z01.818 Encounter for other preprocedural examination (principal)

== ENCOUNTER 2021-11-24 05:48 | Day surgery (SDC) | payer MEDICARE ==
[2021-11-24] VITALS (10 sets, daily range): BP systolic 96–135; BP diastolic 59–98
[~2021-11-24] VITALS: Ht 182.9 cm; Wt 130.8 kg
[~2021-11-24 05:48] MED LIST changes: +ESCI5TAB16 PO
[2021-11-24] MEDS: LACTATED RINGERS 1,000 ML IV PRN ×2 (06:30→08:20)
[2021-11-24] MEDS ORDERED: MIDAZOLAM 2 MG/2 ML (VERSED) VIAL ONE (06:56)
[2021-11-24] MEDS ORDERED: ROCURONIUM 10 MG/ML 5 ML SYRINGE IV ONE (06:56)
[2021-11-24] MEDS ORDERED: LIDOCAINE PF 2% 5 ML (XYLOCAINE) VIAL ONE (06:56)
[2021-11-24] MEDS ORDERED: proPOfol 200 MG/20 ML (DIPRIVAN) VIAL IV ONE (06:56)
[2021-11-24] MEDS ORDERED: ONDANSETRON 4 MG/2 ML (SDV) Z0FRAN ONE (06:56)
[2021-11-24] MEDS ORDERED: SEVOFLURANE (ULTANE) 15 ML INHAL SOLN ONE ×2 (06:56→07:57)
[2021-11-24] MEDS ORDERED: fentaNYL INJ 100 MCG/2 ML AMP ONE ×2 (06:56→08:05)
[2021-11-24] MEDS ORDERED: BACITRACIN OINTMENT 28 GM TUBE ONE (07:20)
--- NOTE | 2021-11-24 07:29 | Progress Note-Pre Operative ---
Pre-Operative Progress Note H&P Reviewed The H&P was reviewed, patient examined and no changes noted. Date Seen by Provider: Nov 24, 2021 Time Seen by Provider: 07: Date H&P Reviewed: Nov 24, 2021 Time H&P Reviewed: 07:29 Pre-Operative Diagnosis: CA PROSTATE AND MEATAL STENOSIS GERALDO EDUARDO MD Nov 24, 2021 07:29
--- NOTE | 2021-11-24 09:21 | Progress Note-Post Operative ---
Post-Operative Progess Note Surgeon (s)/Interior Systems Carpenter (s) Surgeon FRANKLYN CELESTE M.D, GERALDO EDUARDO MD Interior Systems Carpenter: NONE Pre-Operative Diagnosis CA PROSTATE AND MEATAL STENOSIS Post-Operative Diagnosis SAME Procedure & Operative Findings Date of Procedure 11/24/21 Procedure Performed/Findings MEATOTOMY, BRACHYTHERAPY, SPACE OAR, AND CYSTOGRAM Anesthesia Type GENERAL Estimated Blood Loss Estimated blood loss (mL): NEGLIGIBLE Specimens/Packing Specimens Removed NONE Packing: NONE GERALDO EDUARDO MD Nov 24, 2021 09:21
--- NOTE | 2021-11-24 09:23 | Anesthesia-General Post-Op ---
General Patient Condition Mental Status/LOC: Same as Preop Cardiovascular: Satisfactory Nausea/Vomiting: Absent Respiratory: Satisfactory Pain: Controlled Complications: Absent Post Op Complications Complications None Follow Up Care/Instructions Patient Instructions None needed. Anesthesia/Patient Condition Patient Condition Patient is doing well, no complaints, stable vital signs, no apparent adverse anesthesia problems. No complications reported per nursing. EUSEBIO LUNA CRNA Nov 24, 2021 09:23
--- NOTE | 2021-11-24 09:24 | Discharge Inst-Urology ---
Discharge Inst-Urology Reconcile Patient Problems Problems Reviewed?: Yes Final Diagnosis CA PROSTATE Patient Instructions/Follow Up Plan/Assessment/Instructions Discharge with ballesteros and leg bag day time and large bag night time with instructions Come to office this tuesday 9am to DC Ballesteros OTC Neosporin+pain ointment to urethral meatus TID for 5 days Please make appointment to been seen in office in 2 weeks. Increase oral fluids for 48 hours and then as needed. Diet and Activity as tolerated. Keep bowels soft and moving If questions or concerns contact your physician Or seek help at emergency department. GERALDO EDUARDO MD Nov 24, 2021 09:24
[2021-11-24] MEDS ORDERED: ONDANSETRON 4 MG/2 ML (SDV) Z0FRAN IVP PRN (09:30)
[2021-11-24] MEDS ORDERED: fentaNYL INJ 100 MCG/2 ML AMP IVP ONE (09:30)
[2021-11-24] MEDS ORDERED: morphine INJ 10 MG/ML 1ML (SYR OR VIAL) IVP ONE (09:30)
[2021-11-24] MEDS ORDERED: MEPERIDINE (DEMEROL) INJ 50 MG/ML IVP ONE (09:30)
[2021-11-24] MEDS ORDERED: CIPR-225 PO (09:39)
[2021-11-24] MEDS ORDERED: PHEN-640 PO (09:39)
[2021-11-24] MEDS ORDERED: KETO10TA PO (09:39)
--- NOTE | 2021-11-24 09:53 | Diagnostic Imaging Report ---
EXAMINATION: Fluoroscopy. INDICATION: Brachytherapy. FINDINGS: Fluoroscopic assistance was provided for Dr. Espinosa and Dr. Amezquita. 18 seconds of fluoroscopy time was utilized. A single spot film of the pelvis was obtained. There are radiopaque seed implants overlying the prostate gland. IMPRESSION: Fluoroscopic assistance was provided for Dr. Espinosa and Dr. Amezquita. Dictated by: Dictated on workstation # [id number]
== END 2021-11-24 11:20 | disposition home or self-care (01) ==
LOC: SDC 05:48
PROVIDERS: ATTEND Urology
DX: C61 Malignant neoplasm of prostate (principal); E66.9 Obesity, unspecified; Z68.39 Body mass index [BMI] 39.0-39.9, adult
CPT/HCPCS: 55874; 55876; 76000; 76965; 77290; 77318; 77332; 77370; 77470; 77778; 87081; C1715 ×2; C1889; C2643

== ENCOUNTER 2021-12-23 08:51 | Outpatient (RCR) | payer MEDICARE, MEDICAID ==
[~2021-12-23 08:51] MED LIST changes: +KETO10TA PO; +PHEN-640 PO
== END 2022-01-09 | disposition home or self-care (01) ==
LOC: ONC 08:51
PROVIDERS: ATTEND Radiology Radiation Oncology
DX: C61 Malignant neoplasm of prostate (principal)
CPT/HCPCS: 77290; 77295

== ENCOUNTER 2022-02-05 08:34 | Outpatient (RCR) | payer MEDICARE, MEDICAID ==
[~2022-02-05 08:34] MED LIST changes: -ZONI100C29 PO; +ZONI100C79 PO
== END 2022-02-09 | disposition home or self-care (01) ==
LOC: ONC 08:34
PROVIDERS: ATTEND Radiology Radiation Oncology
DX: Z51.0 Encounter for antineoplastic radiation therapy (principal); C61 Malignant neoplasm of prostate
CPT/HCPCS: 77300; 77301; 77334; 77336; 77338; 77385; 77470

== ENCOUNTER 2022-02-26 07:55 | Outpatient (RCR) | payer MEDICARE, MEDICAID | END 2022-03-11 | disposition home or self-care (01) | LOC: ONC 07:55 | PROVIDERS: ATTEND Radiology Radiation Oncology | DX: Z51.0 Encounter for antineoplastic radiation therapy (principal); C61 Malignant neoplasm of prostate | CPT/HCPCS: 77385; G0463; 77336 ==

== ENCOUNTER 2022-05-20 08:51 | Outpatient (RCR) | payer MEDICARE, MEDICAID | END 2022-06-11 | disposition home or self-care (01) | LOC: ONC 08:51 | PROVIDERS: ATTEND Radiology Radiation Oncology | DX: C61 Malignant neoplasm of prostate (principal) | CPT/HCPCS: 99213 ==

== ENCOUNTER 2022-09-29 12:51 | Outpatient (RCR) | payer MEDICARE, MEDICAID ==
[2022-09-29] MEDS ORDERED: LEUPROLIDE 22.5 MG SYRINGE (ELIGARD) SQ SCH (13:15)
== END 2022-10-12 | disposition home or self-care (01) ==
LOC: ONC 12:51
PROVIDERS: ATTEND Internal Medicine Hematology & Oncology
DX: Z51.11 Encounter for antineoplastic chemotherapy (principal); C61 Malignant neoplasm of prostate
CPT/HCPCS: 96402; 99204; 99213

== ENCOUNTER 2022-11-17 05:35 | Outpatient (CLI) | payer MEDICARE, MEDICAID ==
[~2022-11-17] VITALS: Ht 182.9 cm; Wt 126.1 kg
== END 2022-11-17 15:06 | disposition home or self-care (01) ==
LOC: PREOP 05:35
PROVIDERS: ATTEND Surgery
DX: Z01.818 Encounter for other preprocedural examination (principal)

== ENCOUNTER 2022-11-30 09:21 | Day surgery (SDC) | payer MEDICARE, MEDICAID ==
[~2022-11-30] VITALS: Ht 182.9 cm; Wt 126.1 kg
[2022-11-30] MEDS ORDERED: LACTATED RINGERS 1,000 ML IV STA (09:31)
[2022-11-30 09:40] VITALS: BP 112/82
[2022-11-30] MEDS ORDERED: GABA-490 PO (09:43)
[2022-11-30] MEDS ORDERED: PROPOFOL INJECTION 50 ML IV ONE (10:21)
[2022-11-30] MEDS ORDERED: MIDAZOLAM 2 MG/2 ML (VERSED) VIAL ONE (10:23)
[2022-11-30 10:45] VITALS: BP 133/74
[2022-11-30 10:50] VITALS: BP 129/72
--- NOTE | 2022-11-30 10:56 | Discharge Inst-Simple/Standard ---
Discharge Inst-Standard Patient Instructions/Follow Up Plan of Care/Instructions/FU: 2 weeks Susannah Activity as Tolerated: Yes Discharge Diet: No Restrictions ROLLY GAMA DO Nov 30, 2022 10:56
--- NOTE | 2022-11-30 10:57 | Progress Note-Post Operative ---
Post-Operative Progess Note Surgeon (s)/Director Furniture (s) Surgeon ROLLY GAMA DO Director Furniture: na Pre-Operative Diagnosis screening colonoscopy Post-Operative Diagnosis Poor prep Procedure & Operative Findings Date of Procedure 11/30/22 Procedure Performed/Findings Flex Sig Anesthesia Type per paint supervisor Estimated Blood Loss Estimated blood loss (mL): none Specimens/Packing Specimens Removed none ROLLY GAMA DO Nov 30, 2022 10:57
[2022-11-30 11:10] VITALS: BP 107/63
--- NOTE | 2022-11-30 12:44 | Anesthesia-General Post-Op ---
MAC Patient Condition Mental Status/LOC: Same as Preop Cardiovascular: Satisfactory Nausea/Vomiting: Absent Respiratory: Satisfactory Pain: Controlled Complications: Absent Post Op Complications Complications None Follow Up Care/Instructions Patient Instructions None needed. Anesthesiology Discharge Order Discharge Order Patient is doing well, no complaints, stable vital signs, no apparent adverse anesthesia problems. No complications reported per nursing. CLARENCE AMARO CRNA Nov 30, 2022 12:44
--- NOTE | 2022-11-30 18:31 | OPERATIVE REPORT ---
DATE OF SERVICE: 11/30/2022 PREOPERATIVE DIAGNOSIS: Screening colonoscopy. POSTOPERATIVE DIAGNOSIS: Poor prep. PROCEDURE: Flexible sigmoidoscopy. SURGEON: Rolly Davalos DO ANESTHESIA: Per MANAGER INTEGRITY. ESTIMATED BLOOD LOSS: None. COMPLICATIONS: None. INDICATIONS: The patient is a 52-year-old male, needing screening colonoscopy. He understands risks and benefits of procedure and wished to proceed. Consent was signed in chart. DESCRIPTION OF PROCEDURE: The patient was taken to the endoscopy suite, placed in left lateral recumbent position. Timeout was performed. Digital rectal exam was performed. No palpable polyps, masses or ulcerations. Scope was inserted in the rectum, noting a large stool burden. Scope was then continuously retracted back to the rectum, into the sigmoid colon, which continued to encounter a fair amount of stool. Therefore, scope was then slowly retracted back until completely removed, noting no other pathology. The patient tolerated the procedure well without complications. RECOMMENDATIONS: The patient will need 2-day prep. Scope was ended due to poor prep and need better visualization. Job ID: [id number] DocumentID: [id number] Dictated Date: 11/30/2022 11:19:21 Plate Drying Machine Tender Date: 11/30/2022 18:29:00 Dictated By: ROLLY DAVALOS DO
== END 2022-11-30 11:15 | disposition home or self-care (01) ==
LOC: ENDO 09:21
PROVIDERS: ATTEND Surgery
DX: Z12.11 Encounter for screening for malignant neoplasm of colon (principal); E66.9 Obesity, unspecified; Z68.38 Body mass index [BMI] 38.0-38.9, adult

== ENCOUNTER 2022-12-20 13:52 | Outpatient (CLI) | payer MEDICARE, MEDICAID ==
[~2022-12-20] VITALS: Ht 182.9 cm; Wt 126.1 kg
[~2022-12-20 13:52] MED LIST changes: +GABA-490 PO
== END 2022-12-20 14:11 | disposition home or self-care (01) ==
LOC: PREOP 13:52
PROVIDERS: ATTEND Surgery
DX: Z01.818 Encounter for other preprocedural examination (principal)

== ENCOUNTER 2022-12-21 10:06 | Day surgery (SDC) | payer MEDICARE, MEDICAID ==
[~2022-12-21] VITALS: Ht 182.9 cm; Wt 126.1 kg
--- NOTE | 2022-12-21 10:15 | Progress Note-Pre Operative ---
Pre-Operative Progress Note Date H&P Reviewed: Dec 21, 2022 Time H&P Reviewed: 10:15 History & Physical: H&P Reviewed, Patient Examed, No changes noted Pre-Operative Diagnosis: Screening, history of poor prep ROLLY GAMA DO Dec 21, 2022 10:15
[2022-12-21] MEDS ORDERED: LACTATED RINGERS 1,000 ML IV STA (10:22)
[2022-12-21 10:29] VITALS: BP 102/61
[2022-12-21] MEDS ORDERED: PROPOFOL INJECTION 50 ML IV ONE ×2 (11:04→11:13)
--- NOTE | 2022-12-21 11:36 | Progress Note-Post Operative ---
Post-Operative Progess Note Surgeon (s)/Prepared Foods Team Leader (s) Surgeon ROLLY GAMA DO Prepared Foods Team Leader: na Pre-Operative Diagnosis Screening, history of poor prep Post-Operative Diagnosis Diverticulosis Procedure & Operative Findings Date of Procedure 12/21/22 Procedure Performed/Findings Colonoscopy Anesthesia Type per card dealer Estimated Blood Loss Estimated blood loss (mL): 0 Specimens/Packing Specimens Removed None ROLLY GAMA DO Dec 21, 2022 11:36
--- NOTE | 2022-12-21 11:37 | Anesthesia-General Post-Op ---
MAC Patient Condition Mental Status/LOC: Same as Preop Cardiovascular: Satisfactory Nausea/Vomiting: Absent Respiratory: Satisfactory Pain: Controlled Complications: Absent Post Op Complications Complications None Follow Up Care/Instructions Patient Instructions None needed. Anesthesiology Discharge Order Discharge Order Patient is doing well, no complaints, stable vital signs, no apparent adverse anesthesia problems. No complications reported per nursing. FLORA CUELLAR CRNA Dec 21, 2022 11:37
--- NOTE | 2022-12-21 11:38 | Discharge Inst-Simple/Standard ---
Discharge Inst-Standard Reconcile Patient Problems Problems Reviewed?: Yes Patient Instructions/Follow Up Plan of Care/Instructions/FU: Follow up with Dr. Davalos in 10 years Activity as Tolerated: Yes Discharge Diet: Regular Diet ROLLY DAVALOS DO Dec 21, 2022 11:38
[2022-12-21 11:41] VITALS: BP 134/62
[2022-12-21 11:46] VITALS: BP 137/89
[2022-12-21 11:51] VITALS: BP 123/70
[2022-12-21 12:20] VITALS: BP 131/83
--- NOTE | 2022-12-21 23:56 | OPERATIVE REPORT ---
DATE OF SERVICE: 12/21/2022 PREOPERATIVE DIAGNOSIS: Screening colonoscopy, history of poor prep. POSTOPERATIVE DIAGNOSIS: Diverticulosis. PROCEDURE: Colonoscopy. SURGEON: Rolly Davalos DO ANESTHESIA: Per DOPE SPRAYER. ESTIMATED BLOOD LOSS: None. COMPLICATIONS: None. INDICATIONS: The patient is a 52-year-old male, needing screening colonoscopy and poor prep previously, he was instructed to do 2-day prep. He understands risks and benefits of procedure and wishes to proceed. Consent was signed and in chart. DESCRIPTION OF PROCEDURE: The patient was taken to endoscopy suite, placed in left lateral recumbent position. Timeout was performed. Digital rectal exam was performed. No palpable polyps, masses or ulcerations. Scope was inserted into the rectum evidence of stool material present. Scope was slowly advanced and continued to irrigate and suction. Once we got into the sigmoid, there was less stool material and the scope was able to be advanced all the way to the cecum. The majority of the colon was able to visualize with lots of irrigation and suction. Scope was then slowly retracted back. No polyps, masses or ulcerations visualized in the cecum, ascending, transverse, descending and sigmoid colon. He did have diverticulosis present through the sigmoid colon. Scope was slowly retracted back into the rectum, where it was also retroflexed noting no other pathology. Scope was returned to its normal position, slowly withdrawn until completely removed. The patient tolerated the procedure well, no complications, taken to recovery room in stable condition. RECOMMENDATIONS: High-fiber diet due to diverticulosis. Any issues be seen at that time; otherwise, repeat colonoscopy in 10 years unless family history of colon cancer or personal history of polyps. Job ID: [id number] DocumentID: [id number] Dictated Date: 12/21/2022 20:47:24 Plaster Model And Mold Maker Date: 12/21/2022 23:54:00 Dictated By: ROLLY DAVALOS DO [facility] MED[facility] CENTERDestini
== END 2022-12-21 12:23 | disposition home or self-care (01) ==
LOC: ENDO 10:06
PROVIDERS: ATTEND Surgery
DX: Z12.11 Encounter for screening for malignant neoplasm of colon (principal); K57.30 Diverticulosis of large intestine without perforation or abscess without bleeding; Z28.310 Unvaccinated for COVID-19; Z85.46 Personal history of malignant neoplasm of prostate; E66.9 Obesity, unspecified; Z68.37 Body mass index [BMI] 37.0-37.9, adult

== ENCOUNTER 2022-12-28 08:30 | Outpatient (RCR) | payer MEDICARE, MEDICAID ==
[~2022-12-28 08:30] MED LIST changes: +LEUPROLIDE 22.5 MG SYRINGE (ELIGARD) SQ SCH
== END 2023-01-09 | disposition home or self-care (01) ==
LOC: ONC 08:30
PROVIDERS: ATTEND Internal Medicine Hematology & Oncology
DX: Z51.11 Encounter for antineoplastic chemotherapy (principal); C61 Malignant neoplasm of prostate
CPT/HCPCS: 36415; 84153; 96402

== ENCOUNTER → 2023-02-24 | Outpatient (CLI) | payer MEDICARE, MEDICAID ==
[~2023-02-24] MED LIST changes: -LEUPROLIDE 22.5 MG SYRINGE (ELIGARD) SQ SCH
--- NOTE | 2023-02-24 15:01 | Diagnostic Imaging Report ---
EXAMINATION: Left knee radiograph TECHNIQUE: AP, oblique, and lateral views of the left knee obtained. HISTORY: LEFT KNEE PAIN COMPARISON: None available. FINDINGS: No acute osseous findings. Mild to moderate joint space narrowing and marginal osteophyte formation. No unexpected radiopaque foreign body. Joint effusion. IMPRESSION: Left knee joint effusion. [id number] degenerative changes. Dictated by: Dictated on workstation # [id number]
== END ==
LOC: RAD 11:31
PROVIDERS: ATTEND Family Medicine
DX: M25.462 Effusion, left knee (principal)
CPT/HCPCS: 73562

== ENCOUNTER 2023-03-22 09:18 | Outpatient (RCR) | payer MEDICARE, MEDICAID ==
[2023-03-22] MEDS ORDERED: LEUPROLIDE 22.5 MG SYRINGE (ELIGARD) SQ SCH (16:00)
== END 2023-04-11 | disposition home or self-care (01) ==
LOC: ONC 09:18
PROVIDERS: ATTEND Internal Medicine Hematology & Oncology
DX: Z51.11 Encounter for antineoplastic chemotherapy (principal); C61 Malignant neoplasm of prostate
CPT/HCPCS: 84153; 96402

== ENCOUNTER 2023-06-14 09:19 | Outpatient (RCR) | payer MEDICARE, MEDICAID ==
[~2023-06-14 09:19] MED LIST changes: -GABA-490 PO; +GABA-491 PO
[2023-06-14] MEDS ORDERED: LEUPROLIDE 22.5 MG SYRINGE (ELIGARD) SQ SCH (14:30)
== END 2023-07-12 | disposition home or self-care (01) ==
LOC: ONC 09:19
PROVIDERS: ATTEND Internal Medicine Hematology & Oncology
DX: Z51.11 Encounter for antineoplastic chemotherapy (principal); C61 Malignant neoplasm of prostate
CPT/HCPCS: 36415; 84153; 96402; 99214

== ENCOUNTER → 2023-08-16 | Outpatient (CLI) | payer MEDICARE, MEDICAID ==
--- NOTE | 2023-08-16 17:00 | Diagnostic Imaging Report ---
LUMBAR SPINE - 2-3 VIEWS INDICATION: Low back pain COMPARISON: Lumbar spine MRI from 04/07/2020 TECHNIQUE: 3 views of lumbar spine. FINDINGS: Alignment is normal. There is no spondylolisthesis. Vertebral bodies are normal in stature without fracture or ankylosis. SI joints are normal. Mild degenerative disc space narrowing L2-L3 and L3-L4. IMPRESSION: Unchanged mild degenerative disc disease in the upper lumbar spine. Dictated by: Dictated on workstation # [id number]
== END ==
LOC: RAD 11:12
PROVIDERS: ATTEND Family Medicine
DX: M51.36 Other intervertebral disc degeneration, lumbar region (principal)
CPT/HCPCS: 72100